=== PATIENT | male | born 1965 | race African-American/Black ===

== ENCOUNTER 2019-12-01 11:35 | Emergency (ER) | payer SELFPAY ==
[2019-12-01 11:36] VITALS: BP 130/79; PULSE 84; RESP 16; TEMP 37.3; O2SAT 100; BMI 24.5
--- NOTE | 2019-12-01 12:51 | US_ITS ---
STUDY: SCROTUM ULTRASOUND REASON FOR EXAM: Male, 54 years old. RT TESTICLE PAIN X 2 DAYS TECHNIQUE: Ultrasound evaluation of the scrotum was performed with color Doppler and static shankar-scale imaging. COMPARISON: None. FINDINGS: RIGHT TESTICLE INTRATESTICULAR: There is a normal size of the right testicle. The right testicle measures 4.4 cm x 2.8 cm x 2.3 cm. There is a homogenous echotexture. There is normal arterial and normal venous vascularity. There is no demonstrated right testicular mass or cyst. EXTRATESTICULAR: The epididymis is normal in size. The epididymis head measures 1.1 cm x 1.4 cm x 0.9 cm. There is normal vascularity of the epididymis. There is no demonstrated epididymal cystic structure. There is a moderate size hydrocele. There is no demonstrated varicocele. There is no demonstrated extratesticular mass or cyst. LEFT TESTICLE INTRATESTICULAR: There is a normal size of the left testicle. The left testicle measures 4.5 cm x 3 cm x 2.2 cm. There is a homogenous echotexture. There is normal arterial and normal venous vascularity. There is no demonstrated left testicular mass or cyst. EXTRATESTICULAR: The epididymis is normal in size. The epididymis head measures 1 cm x 1 cm x 1.3 cm. There is normal vascularity of the epididymis. There is no demonstrated epididymal cystic structure. There is a small hydrocele. There is no demonstrated varicocele. There is no demonstrated extratesticular mass or cyst. US/Testicular with Arterial Flow IMPRESSION: Bilateral hydroceles right greater than left. Electronically Signed: Oni Martinez, at 14:07 EST , Service support ,
[2019-12-01] MEDS: Naproxen 250 MG Tablet 500 MG PO (13:05)
[2019-12-01] MEDS: oxyCODONE 5 MG Tablet 10 MG PO (13:08)
[2019-12-01] MEDS: Ondansetron ODT 4 MG Tablet PO (13:08)
[2019-12-01 13:13] LABS: Mucous, Urine 0 SEEN /hpf (<or=2+)
[2019-12-01 13:24] LABS: Color, Urine Yellow (Yellow); Glucose, Dipstick Normal (Normal); Ketone-Dipstick Negative (Negative); Leukocyte Esterase-Dipstick 100 /ul (Negative); Nitrite-Dipstick Negative (Negative); Occult Blood-Urine 150 /ul (Negative); Protein-Dipstick 30 mg/dl (Negative); Urine Bilirubin Dipstick Negative (Negative); Urine Clarity Clear (Clear); Urine Urobilinogen Normal (Normal)
[2019-12-01 13:41] LABS: Bacteria 1+ /hpf (None Seen); Red Blood Cells-Urine 10-25 SEEN /hpf (0-5); Squamous Epithelial Cells - UA 0-5 SEEN /hpf (0-5); White Blood Cells 10-25 SEEN /hpf (0-5)
--- NOTE | 2019-12-01 14:29 | ED.DCSUM_ITS ---
- ER Visit Summary Date of Service: 12/01/19 Chief Complaint: Right testicle swollen History of Present Illness: The patient is a 54 M with no primary care physician. He reports that his right testicle is been swollen for the past 3 days. Reports is a sharp pain is 10-10 in severity. Is worsened by movement. Is relieved by rest or pushing on his stomach. He is sexually active. He has no concern for the possibility of an STD exposure. He denies any penile discharge. He denies any dysuria or frequency. No fever or chills. No abdominal pain, nausea, vomiting, or diarrhea. Physical Examination: Vitals: Stable. Afebrile. General: Well-nourished and well-developed. Head: Normocephalic atraumatic. Neck: Supple, no lymphadenopathy. No JVD. Nontender. Cardiovascular: Regular rate and rhythm. No murmurs. Respiratory: No respiratory distress. Clear to auscultation bilaterally. Abdominal: Soft, nontender, nondistended, normal bowel sounds. No guarding, rebound, or peritoneal signs. : Normal circumcised male. Right testicle has moderate tenderness palpation. There is mild epididymal tenderness. There are no inguinal hernias. He was examined while standing. Back: Nontender. Extremities: Nontender, no edema. Skin: Normal color, no rash. Neurologic: Alert and oriented ?3. Cranial nerves II through XII are intact. Normal strength and sensation. Psych: Normal affect. Test Results: UA shows 10-25 white blood cells and red blood cells. GC chlamydia was negative. Clinical Impression(s) from Imaging Studies Testicular Ultrasound 12/01/19 12:51 IMPRESSION: Bilateral hydroceles right greater than left. Electronically Signed: Oni Martinez, at 14:07 EST , Service support , Emergency Department Course and Treatment: Patient was treated with [place], naproxen, Zofran, and Cipro p.o. His urine was sent for culture. Treatment Plan: Patient be discharged with the above medications. He is instructed to wear supportive undergarments and ice. Follow-up Dr. Pike in 1 to 2 weeks for another exam. Return to the emergency department for any worsening symptoms. Disposition: To home in improved and stable condition. Impression: 1. UTI. 2. Right testicle pain. This note was generated with [employer] dictation software. It may contain incorrect words, spelling, and punctuation that were not noted in review of the chart prior to signing ED Disposition - Plan for ED Patient: Disposition: Home or Assisted Living Instructions: Urinary Tract Infections in Men Prescriptions: Ciprofloxacin [Cipro] 500 mg PO BID #14 tab Prescription Printed Naproxen [Naprosyn] 500 mg PO BID #14 tab Prescription Printed Hydrocodone Bitart/Apap 5-325 [[place] 5MG-325MG] 1 tab PO Q6H PRN PRN 3 Days #10 tab PRN Reason: Pain Prescription Printed Referrals: Monty Saldana MD [STAFF PHYSICIAN] - 1-2 Weeks
[2019-12-01] MEDS: Ciprofloxacin 500 MG Tablet PO (14:42)
[2019-12-01 14:45] VITALS: BP 134/87; PULSE 87; RESP 18; O2SAT 99
[2019-12-01 15:22] LABS: Chlamydia Trachomatis by PCR Negative (Negative); Neisserai gonorrhoeae by PCR Negative (Negative); Probe Check PASS; Sample Adequacy Control PASS; Specimen Processing Control PASS
== END 2019-12-01 14:46 | disposition home or self-care (01) ==
PROVIDERS: Emergency Provider Emergency Medicine
DX: N39.0 Urinary tract infection, site not specified (principal); N50.811 Right testicular pain; Z72.0 Tobacco use
CPT/HCPCS: 76870; 81001; 87086; 87088; 87186; 87491; 87591; 93976; 99283

== ENCOUNTER → 2025-04-12 | Outpatient (CLI) | payer MEDICAID, SELFPAY ==
[2025-04-12 14:07] LABS: Absolute Lymphocyte Count 1.89 X10^3/uL (0.83-4.51); Absolute Neutrophil Count 2.3 X10^3/uL (2.0-7.7); Basophil# 0.05 X10^3/uL; Eosinophil# 0.12 X10^3/uL; Eosinophils% 2.5 % (0-5); Hemoglobin 13.7 g/dL (13.0-16.5); Lymphocyte # 1.89 X10^3/ul (0.83-4.51); Lymphocyte % 38.7 % (19-41); Mean Corp Hgb Conc 32.6 g/dL (32-36); Mean Corpuscular Hgb 27.3 pg (27.0-32.0); Mean Corpuscular Volume 83.8 fL (80-94); Mean Platelet Vol. 11.4 fl (6.2-12.0); Monocyte# 0.48 X10^3/uL; Monocyte% 9.8 % (0-10); NRBC Flagged by Analyzer 0 % (0-5); Neutrophil # 2.33 X10^3/uL (2.7-7.7); Neutrophil % 47.8 % (47-70); POSITIVE MORPHOLOGY YES; Platelet Count 258 K/mm3 (150-450); RBC Distribution Width CV 13.7 % (11.6-14.6); RBC Distribution Width SD 42.4 fl (35.1-43.9); Red Blood Count 5.01 M/mm3 (4.6-6.2); White Blood Count 4.9 K/mm3 (4.4-11.0)
[2025-04-12 14:08] LABS: Differential Indicated SCAN CRITERIA MET
[2025-04-12 14:32] LABS: Atypical Lymphocyte 1+ %; Differential Comment SCANNED
[2025-04-12 15:06] LABS: ALB/GLOB Ratio 1.5 RATIO (0.9-2.4); AST(SGOT) 21 U/L (<=37); Alanine Aminotransfer ALT/SGPT 13 U/L (<=46); Albumin, Serum 4.2 g/dL (3.5-5.0); Alkaline Phosphatase 115 U/L (40-129); Anion Gap 11 (5-15); BUN 12 mg/dL (4-19); BUN/Creat Ratio 14.3 RATIO (10-20); Carbon Dioxide 23.7 mmol/L (21.0-32.0); Chloride 106 mmol/L (98-108); Cholesterol 156 mg/dL (<=200); Creatinine, Serum 0.81 mg/dL (0.70-1.20); EST Glomerular Filtration Rate 103 (>60); Globulin 2.7 g/dL (2.2-4.2); Glucose 90 mg/dL (70-99); High Density Lipoprotein 57 mg/dL; Low Density Lipoprotein Calc. 92 mg/dL; Protein, Total 6.9 g/dL (5.9-8.4); Sodium Level 140 mmol/L (133-145); Total Bilirubin 0.19 mg/dL (0.00-1.30); Triglycerides 38 mg/dL; Very Low Density Lipoprotein 8 mg/dL (5-40); cholesterol:hdl ratio screen 2.75
--- OUTSIDE RECORDS SUMMARY | 2025-04-12 21:51 | XMS RPT_ITS | CCD ---
Author Organization [facility] Care Team Providers Care Internet Systems Administrator Name Role Phone Unavailable Primary Care Provider UnavailANA MARIA Alvarez Referring Unavailable Care Physician, No Primary Primary Care Provider Unavailable Care Physician, No Primary Referring Provider Un available Roxanna MACEDO, Dr. Lamas Attending Provider Cydney Mcknight Attending Unavailable Care Physician, No Primary Primary Care Unava ilable Care Physician, No Primary Referring Unava ilCydney Wang Referring Unavailable Cydney Mcknight Attending Unavailable Cydney Mcknight Primary Care Unavailable Medications Current Medications Medication Drug Class(es) Dates Sig (Normalized) Sig (Original) metroNIDAZOLE 500 mg oral tablet (3 sources) Nitroimidazole Antimicrobial Start: 02-24-2024 End: 03-02-2024 take 1 tablet by mouth twice daily metroNIDAZOLE (FLAGYL) 500 mg tablet Take 1 tablet by mouth two times a day for 7 days. 14 tablet 0 02/24/2024 03/02/2024 Active Comment on above: Take 1 tablet by edy two times a day for 7 days. 24 hr nicotine 0.583 mg/hr transdermal system (1 source) Cholinergic Nicotinic Agonist Start: 04-11-2025 apply 1 dose transdermal route every twenty-four hours Nicotine 14 mg/24 hr patch 24 hour Active 1 NMA TD Q24H April 11, 2025 12:00am Completed/Discontinued Medications Medication Drug Class(es) Dates Sig (Normalized) Sig (Original) acetaminophen 325 mg / HYDROcodone bitartrate 5 mg oral tablet (1 source) Opioid Agonist Start: 12-01-2019 End: 12-04-2019 Hydrocodone-Acetam inophen 1 TABLET tablet Discontinued 1 {tbl} PO EVERY 6 HOURS NEEDED as needed for Pain 10 3 December 01, 2019 December 03, 2019 1:00am December 04, 2019 1:08am ciprofloxacin 500 mg oral tablet (1 source) Quinolone Antimicrobial Start: 12-01-2019 End: 04-11-2025 take 1 tablet by mouth twice daily Ciprofloxacin Hcl 500 MG tablet Discontinued 500 mg PO TWICE A DAY December 01, 2019 1:00am April 11, 2025 12:59pm naproxen 500 mg oral tablet (1 source) Nonsteroidal Anti-inflammatory Drug Start: 12-01-2019 End: 04-11-2025 take 1 tablet by mouth twice daily Naproxen 500 MG tablet Discontinued 500 mg PO TWICE A DAY December 01, 2019 1:00am April 11, 2025 12:59pm Problems Problem Classification Problem Date Documented Da te Episodic/Chronic Immunizations and screening for infectious disease (1 source) Patient encounter status; Translations: [Encounter for screening for infections with a predominantly sexual mode of transmission] 02-23-2024 Episodic Other ear and sense organ disorders (1 source) Impacted cerumen of bilateral ears; Translations: [Impacted cerumen, bilateral] Episodic Other gastrointestinal disorders (1 source) Stool finding; Translations: [Other specified symptoms and signs involving the digestive system and abdomen] 04-11-2025 Episodic Other gastrointestinal disorders (2 sources) Other specified symptoms and signs involving the digestive system and abdomen; Translations: [Other specified symptoms and signs involving the digestive system and abdomen] Onset: 04-11-2025 Episodic Other male genital disorders (2 sources) Testicular mass; Translations: [Other specified disorders of the male genital organs] 02-23-2024 Episodic Other male genital disorders (1 source) Other specified disorders of the male genital organs; Translations: [Testicular mass] Onset: 02-24-2024 Episodic Unclassified (1 source) R19.8 - Other specified symptoms and signs involving the digestive system and abdomen Results Test Name Value Interpretation Reference Range [facility] Internal Medicine Office Vis iton 04-11-2025 Internal Medicine Office Visit [facility] [place], [place] [address] OFFICE VISIT Date of Service: 04/11/25 MR#: [id number] Acct: [id number] Name: PABLO STANLEY Rep #: [id number] : 1965 Provider: Dr. Cydney gardner MD Age/Sex: 59/M Location: [facility] Status: Signed Intake Vital Signs 04/11/25 13:18 Height 5 ft 10 in Weight: 150 lb BMI 21.5 BP 134/90 H Blood Pressure Location Lt brachial Position Sitting Respiration 16 Pulse 85 Pulse Source Monitor Temp 99.1 F Temp Source Temporal Pulse Oximetry (%) 99 Oxygen Delivery Method room air Intake Visit Reasons: EST NEW PT - PPWK SENT Chief Complaint: Establish care. 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 Has not had routine labs drawn or is up to date on colonoscopies or other routine maintenance. Pt states he is having issues w/ food digesting slow and alternating between constipation and loose stools. When he thinks he is done and should be he gets up and has to go back to the toilet again. He has been written up a few times for it, they requested he see a to look into and get a note. Pt states it has been going on for about a year and is not changing in intensity or frequency. Pt states he goes to the bathroom in the morning before work but he has to use it by the time he gets there. Pt states he occasionally has to strain, and has abdominal cramping when he finishes having a BM. Pt states he has about 2-3 days between BM's and thinks that is what's the issues. He states he does have an excess amount of stool when he can use the restroom. He says that if he stands up after having a BM and sits down he is able to go again. He says the processed foods seem to make the issue worse. Has not tried treating otc. He does c/o loss of appetite. He has irritated his rectum and had blood when he wipes but thinks it was from wiping so much. Has not tried to treat w/ anything otc. Pt denies abdominal pain, inctontience, bloating, nausea, vomiting. No change or odd color/smell or charachteristics. [facility] Medical History (Updated 04/11/25 @ 14:[address] Cydney Mcknight MD) Encounter to establish care Elevated blood pressure reading without diagnosis of hypertension Abnormal bowel movement Preventative health care Social History (Updated 04/11/25 @ 13:07 by Anat Moon MA) adopted: No household members: significant other and children number of children: 6 current occupational status: employed current occupation: [employer] pets and animals: Yes pets and animals: cat(s) and dog(s) sexually active: Yes Smoking Status: Current every day smoker tobacco type: cigarettes Tobacco: How many years used: 25 alcohol intake: never substance use type: marijuana caffeine: No frequency: daily do you feel safe at home: Yes HPI HPI Chief Complaint: Establish care. Concerns with bowel movement Details: PABLO STANLEY, is a 59 M who presents to the office today to establish care. Also has some concerns. He states that over the last 2 to 3 years, he has had some concerns with his bowel movements. Feels that he is unable to empty his bowels consistently. Happens at work and at home. When he thinks he is done, gets up and still has to go. Vacillates between constipation and diarrhea. No blood in his stool and no unintentional weight changes. Has not been seen or had any workup in many years. Blood pressure is elevated today, no known history of hypertension. He states that this may be due to recent stressors. History of tobacco use and has smoked about a pack a day for about 30 years. Over the last 3 months, he states that he cut back to smoking 1 pack over 3 days. He would like to quit smoking and has been making changes on his own. As above, has not sought medical care in many years. Not had colon cancer screening or lung cancer screening. No concerns with breathing reported. ROS Const Constitutional: Positive for change in appetite; No body ache, chills, excessive sweating, fatigue, fever(s), frequent falls, headache(s), snoring, weakness or sleep problems Eyes Eyes: No blurry vision, change in vision, eye pain or Light sensitivity ENT ENT: No abnormal hearing, ear or mastoid pain, tinnitus, nasal congestion, headache(s), neck pain or sore throat Resp Respiratory: No cough, shortness of breath, snoring or wheezing Cardio Cardiology: No chest pain at rest, chest pain with exertion, excessive sweating, shortness of breath, d (more content not included)... Normal [facility] C. trachomatis+N. gonorrhoea e DNA GÓMEZ+probe Ql (Unsp spec)on 02-24-2024 C. trachomatis rRNA GÓMEZ+probe Ql (Unsp spec) Negative Negative for Chlamydia trachomatis by amplificaton [facility] N. gonorrhoeae rRNA GÓMEZ+probe Ql (Unsp spec) Negative Negative for Neisseria gonorrhoeae by amplification [facility] CNP[facility] PABLO STANLEY ([id number]) 1965 M Date Time Provider Department 02/24/24 ANA MARIA RODRIGUEZ [facility] During your visit today, we recorded the following information about you: Ana Maria Rodriguez APRN.CNP 02/24/2024 2:31 PM Signed Please inform patient ultrasound did not reveal any masses. 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 Most the time these are harmless and no treatment is needed. Follow-up with as discussed. Ana Maria Rodriguez APRN.[place] LPN 02/24/2024 3:02 PM Signed Left message for patient to return call. AVA Mills Krystle, RN 02/25/2024 10:54 AM Signed Patient calls and notified of results and providers instructions. Patient verbalizes understanding. Desiree Vasquez RN Allergies As of Date: 02/24/2024 (No Known Allergies) Date Reviewed: 02/23/2024 Reviewed by: Ana Maria Rodriguez APRN.CNP - Fully Assessed Reason for Visit: Results [95] Prescriptions as of 02/25/2024 - metroNIDAZOLE (FLAGYL) 500 mg tablet Take 1 tablet by mouth two times a day for 7 days. Problem List As Of Date: 02/24/2024 (None) Encounter Status:Closed by DESIREE VASQUEZ on 02/25/24 [facility] MALAHARVEYROSALBA Turner ([id number]) 1965 M Date Time Provider Department 02/24/24 NEREYDA MCKEON [facility] During your visit today, we recorded the following information about you: Nereyda Mckeon PA 02/24/2024 7:17 AM Signed Please contact patient and let him know he tested positive for trichomonas. This is an STD. I sent metronidazole into the pharmacy. Please take this twice daily as prescribed. Do not drink alcohol while taking this medication. No sexual intercourse for 7 days after finishing antibiotic. Notify all partners of positive trichomonas result. He was negative for chlamydia and gonorrhea Simona Fofana MA 02/24/2024 7:32 AM Signed Left message for patient to return call. KEESHA Anderson Krystle, RN 02/25/2024 10:53 AM Signed Patient calls and notified of results and providers instructions. Patient verbalizes understanding. Desiree Vasquez RN Allergies As of Date: 02/24/2024 (No Known Allergies) Date Reviewed: 02/23/2024 Reviewed by: Ana Maria Rodriguez APRN.[facility] - Fully Assessed Reason for Visit: Results [95] Order(s):metroNIDAZ OLE (FLAGYL) 500 mg tabletTake 1 tablet by mouth two times a day for 7 days.Disp: 14 tabletRfl: 0 Prescriptions as of 02/25/2024 - metroNIDAZOLE (FLAGYL) 500 mg tablet Take 1 tablet by mouth two times a day for 7 days. Problem List As Of Date: 02/24/2024 (None) Prescriptions ordered this encounter Disp Refills Start End METRONIDAZOLE 500 MG TABLET 14 t* 0 02/24/2024 03/02/2024 Route: ORAL Sig: Take 1 tablet by mouth two times a day for 7 days. Encounter Status:Closed by DESIREE VASQUEZ on 02/25/24 Normal [facility] No Panel Informationon 02-23 [facility] TRICHOMONAS VAGINALIS NAATon 02-24-2024 T. vaginalis DNA GÓMEZ+probe Ql (Unsp spec) Positive Abnormal Negative for Trichomonas vaginalis by amplification [facility] US DOPPLER COMPLETEon 2023 US DOPPLER COMPLETE * * *Final Report* * * DATE OF EXAM: Feb 24 2024 2:01PM WRU [id number] - US DOPPLER COMPLETE / PROCEDURE REASON: Testicular mass * * * * Physician Interpretation * * * * EXAMINATION: SCROTAL ULTRASOUND WITH DOPPLER IMAGING CLINICAL HISTORY: Scrotal mass TECHNIQUE: Sonography of the scrotal contents with color flow and spectral Doppler imaging of the testicular vasculature was performed. Images were obtained and stored in a permanent archive and interpreted remotely. M: US_2 COMPARISON: None RESULT: RIGHT SCROTUM: Right testis: 1.9 x 3.1 x 4.3 cm. Mild tubular ectasia of the rete testes. Otherwise, homogeneous with no calcifications or mass. Normal intratesticular arterial and venous flow with normal spectral waveforms. Epididymis: Normal. Vascular flow on Color Doppler is symmetric to the contralateral side. Hydrocele: small present Varicocele: Small present with the mildly prominent veins of the right pampiniform plexus measuring up to 2.3 mm LEFT SCROTUM: Left testis: 2.1 x 3.3 x 4.5 cm. Tubular ectasia of the rete testes. Otherwise, homogeneous with no calcifications or mass. Normal intratesticular arterial and venous flow with normal spectral waveforms. Epididymis: Normal. Vascular flow on Color Doppler is symmetric to the contralateral side. Hydrocele: small present Varicocele: Present with the dilated veins of the left pampiniform plexus measuring up to 4.3 mm in size. IMPRESSION: 1. No sonographic evidence of testicular mass. 2. 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 3. Bilateral varicoceles, left larger than right. Biosolids Management Technician: TODD Transcribe Date/Time: Feb 24 2024 2:11P Dictated by : MALIK SHARMA MD This examination was interpreted and the report reviewed and electronically signed by: MALIK SHARMA MD on Feb 24 2024 2:15PM EST [id number] Normal [facility] US SCROTUM AND CONTENTSon US SCROTUM AND CONTENTS * * *Final Report* * * DATE OF EXAM: Feb 24 2024 2:01PM U 1063 - US SCROTUM AND CONTENTS / PROCEDURE REASON: Testicular mass * * * * Physician Interpretation * * * * EXAMINATION: SCROTAL ULTRASOUND WITH DOPPLER IMAGING CLINICAL HISTORY: Scrotal mass TECHNIQUE: Sonography of the scrotal contents with color flow and spectral Doppler imaging of the testicular vasculature was performed. Images were obtained and stored in a permanent archive and interpreted remotely. M: USC_2 COMPARISON: None RESULT: RIGHT SCROTUM: Right testis: 1.9 x 3.1 x 4.3 cm. Mild tubular ectasia of the rete testes. Otherwise, homogeneous with no calcifications or mass. Normal intratesticular arterial and venous flow with normal spectral waveforms. Epididymis: Normal. Vascular flow on Color Doppler is symmetric to the contralateral side. Hydrocele: small present Varicocele: Small present with the mildly prominent veins of the right pampiniform plexus measuring up to 2.3 mm LEFT SCROTUM: Left testis: 2.1 x 3.3 x 4.5 cm. Tubular ectasia of the rete testes. Otherwise, homogeneous with no calcifications or mass. Normal intratesticular arterial and venous flow with normal spectral waveforms. Epididymis: Normal. Vascular flow on Color Doppler is symmetric to the contralateral side. Hydrocele: small present Varicocele: Present with the dilated veins of the left pampiniform plexus measuring up to 4.3 mm in size. IMPRESSION: 1. No sonographic evidence of testicular mass. 2. 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 3. Bilateral varicoceles, left larger than right. Biosolids Management Technician: TODD Transcribe Date/Time: Feb 24 2024 2:11P Dictated by : MALIK SHARMA MD This examination was interpreted and the report reviewed and electronically signed by: MALIK SHARMA MD on Feb 24 2024 2:15PM EST [id number] Normal [facility] C. trachomatis+N. gonorrhoea e DNA GÓMEZ+probe Ql (Unsp spec)on 02-23-2024 C. trachomatis rRNA GÓMEZ+probe Ql (Unsp spec) Negative Normal Negative for Chlamydia trachomatis by amplificaton [facility] Comment on above: Order Comment: Speci men Type: URINE SPECIMEN Ordering Facility: [facility] Address: [address] [place] [address] Performed By: #### 3 [id number] #### [facility] CLIA [id number] [address] [place] [address] [place] PO N. gonorrhoeae rRNA GÓMEZ+probe Ql (Unsp spec) Negative Normal Negative for Neisseria gonorrhoeae by amplification [facility] Comment on above: Order Comment: Speci men Type: URINE SPECIMEN Ordering Facility: [facility] Address: [address] [place] [address] Performed By: #### 3 [id number] #### [facility] CLIA [id number] [address] [place] [address] [place] OF PO CNOVon 02-23-2024 CNOV Office Visit (UCTR) ---- PABLO STANLEY ([id number]) 1965 M Date Time Provider Department 02/23/24 11:45 AM ANA MARIA RODRIGUEZ [facility] During your visit today, we recorded the following information about you: Temperature Pulse Respiration Blood pressure 97.1 degrees 86/minute 16/minute 110/68 Weight 68 kg Ana Maria Rodriguez APRN.TELESALES SPECIALIST 02/23/2024 12:21 PM Signed Subjective HPI Nontoxic-appearing male presents urgent care chief complaint STD exposure. Patient states found out that his partner tested positive for trichomonas. He has been sexually active with her. Does not use protection. States overall feels well. Additionally has noticed the lump in his left testicle. This has been present for 2 to 3 months. It is not painful. Denies any scrotal pain testicular swelling penile drainage or rashes. Presents today for evaluation. Denies any fever body aches chills productive cough chest pain shortness of breath pleuritic pain hemoptysis nausea vomiting abdominal pain change in bowel or bladder habits. Past medical history prescription medication use and allergies reviewed. .Patient presents with: STD: trich exposure History reviewed. No pertinent past medical history. History reviewed. No pertinent surgical history. ALLERGIES Patient has no known allergies. MEDICATIONS No prescriptions on file. History reviewed. No pertinent family history. Social History Tobacco Use Smoking status: Every Day Smokeless tobacco: Never BP 110/68 Pulse 86 Temp 36.2 ?C (97.1 ?F) Resp 16 Wt 68 kg (149 lb 14.6 oz) SpO2 99% Review of Systems Constitutional: Negative for chills, fever and malaise/fatigue. HENT: Negative for congestion, ear discharge, ear pain, sinus pain and sore throat. Eyes: Negative for blurred vision, pain, discharge and redness. Respiratory: Negative for cough, hemoptysis, sputum production, shortness of breath, wheezing and stridor. Cardiovascular: Negative for chest pain. Gastrointestinal: Negative for abdominal pain, diarrhea, nausea and vomiting. Genitourinary: Negative for dysuria, flank pain, frequency, hematuria and urgency. Musculoskeletal: Negative for myalgias. Skin: Negative for itching and rash. Neurological: Negative for dizziness and headaches. Objective Physical Exam Constitutional: General: He is not in acute distress. Appearance: He is not diaphoretic. HENT: Head: Normocephalic. Jaw: No trismus, tenderness, swelling or pain on movement. Mouth/Throat: Mouth: Mucous membranes are moist. Pharynx: Oropharynx is clear. Uvula midline. No pharyngeal swelling, oropharyngeal exudate, posterior oropharyngeal erythema or uvula swelling. Eyes: Conjunctiva/sclera: Conjunctivae normal. Pupils: Pupils are equal, round, and reactive to light. Cardiovascular: Rate and Rhythm: Normal rate and regular rhythm. Heart sounds: Normal heart sounds. Pulmonary: Effort: Pulmonary effort is normal. No tachypnea, accessory muscle usage or respiratory distress. Breath sounds: Normal breath sounds. No stridor. No wheezing, rhonchi or rales. Abdominal: General: There is no distension. Palpations: Abdomen is soft. Tenderness: There is no abdominal tenderness. There is no guarding or rebound. Genitourinary: Pubic Area: No rash. Testes: Right: Tenderness or swelling not present. Left: Tenderness or swelling not present. Comments: Possible testicular mass noted highlighted area. Musculoskeletal: Cervical back: Normal range of motion and neck supple. No edema, erythema, rigidity or tenderness. No pain with movement. Normal range of motion. Lymphadenopathy: Cervical: No cervical adenopathy. Skin: General: Skin is warm and dry. Neurological: Mental Status: He is alert and oriented to person, place, and time. ASSESSMENT/PLAN: 1. Screening for STD (sexually transmitted disease) - ICD9: V74.5, ICD10: Z11.3 (primary diagnosis) - GONORRHEA/CHLAMYDIA NAAT - TRICHOMONAS VAGINALIS NAAT 2. Testicular mass - ICD9: 608.89, ICD10: N50.89 - US SCROTUM AND CONTENTS - CONSULT TO UROLOGY - US SCROTUM AND CONTENTS Will test for gonorrhea chlamydia and trichomonas via urine. Treat accordingly to test results. Additionally will obtain a ultrasound due to possible testicular mass. Will refer to urology for follow-up. Patient was educated on supportive therapies. Patient will follow up with primary care provider as needed. Patient was instructed to immediately proceed to emergency room for any new, worsening, or symptoms lasting longer than anticipated. The patient's clinical presentation is otherwise unremarkable at this time. Based on exam and clinical finding, the patient is stable for discharge. Plan of care was discussed with patient. Patient verbalizes understanding and agrees to plan of care. This note was generated using [employer] software. It m (more content not included)... Normal [facility] TRICHOMONAS VAGINALIS NAATon 02-23-2024 T. vaginalis DNA GÓMEZ+probe Ql (Unsp spec) Positive Abnormal Negative for Trichomonas vaginalis by amplification [facility] Comment on above: Order Comment: Speci men Type: URINE SPECIMEN Ordering Facility: [facility] Address: [address] [place] [address] [place] [address] Performed By: #### T RVAMP #### [facility] CLIA [id number] [address] [place], [place] [address] OF PO CNOVon 04-30-2023 CNOV Office Visit ([facility]WSTR) ---- PABLO STANLEY ([id number]) 1965 M Date Time Provider Department 04/30/23 3:45 PM MARYSE COLON [facility] During your visit today, we recorded the following information about you: Temperature Pulse Respiration Blood pressure 97.4 degrees 80/minute 18/minute 120/70 Weight 67.4 kg Maryse Colon APRN.TELESALES SPECIALIST 04/30/2023 4:27 PM Signed Subjective HPI HPI Pablo Johnny Stanley is a 57 year old male who presents today for CC of bilat ears plugged. This started 1 week ago. Has tried nothing for relief. Symptoms are worsened by nothing. Risk factors uses qtips. Denies uri symptoms. .Patient presents with: Ear Problem: Bilateral ears clogged x1 week No past medical history on file. No past surgical history on file. ALLERGIES Patient has no known allergies. MEDICATIONS No prescriptions on file. No family history on file. Social History Tobacco Use Smoking status: Every Day Smokeless tobacco: Never ROS Objective Blood pressure 120/70, pulse 80, temperature 36.3 ?C (97.4 ?F), resp. rate 18, weight 67.4 kg (148 lb 9.6 oz), SpO2 98 %. Physical Exam Constitutional: General: He is not in acute distress. Appearance: He is not toxic-appearing or diaphoretic. HENT: Head: Normocephalic and atraumatic. Right Ear: Hearing and external ear normal. Left Ear: Hearing and external ear normal. Ears: Comments: Initially unable to see bilat tm d/t cerumen impaction. Procedure: Provider/curette/al ligator forceps Nurse/lavage After procedure left canal clear canal clear and left tm normal -right cerumen impaction unable to be cleared d/t pain, very hard crumen. Nose: Nose normal. Mouth/Throat: Lips: [place]. Mouth: Mucous membranes are moist. Pulmonary: Effort: Pulmonary effort is normal. No accessory muscle usage or respiratory distress. Lymphadenopathy: Cervical: No cervical adenopathy. Right cervical: No superficial cervical adenopathy. Left cervical: No superficial cervical adenopathy. Neurological: Mental Status: He is alert and oriented to person, place, and time. ASSESSMENT/PLAN: 1. Bilateral impacted cerumen - ICD9: 380.4, ICD10: H61.23 Successful procedure in left ear, not successful in right Discussed treatment with debrox and f/u for lavage Discussed not using qtips. - AMBULATORY EAR LAVAGE/IRRIGATION Maryse Colon APRN.TELESALES SPECIALIST Blanka Hanson LPN 04/30/2023 4:10 PM Signed Ambulatory Ear Lavage Pre-treatment: Carbamide Peroxide (i.e. Debrox) Treatment: Both ears Equipment and Irrigation solution and Volume used: Single use syringe with single use irrigation tip Water Return flow appearance: Brown Yellow Cloudy Debris Patient tolerated procedure: yes Tympanic membrane assessment: Tympanic membrane assessed by LIP pre and post procedure Allergies As of Date: 04/30/2023 (No Known Allergies) Date Reviewed: 04/30/2023 Reviewed by: Kori Barksdale MA - Fully Assessed Reason for Visit: Ear Problem [38] Cmt: Bilateral ears clogged x1 week Primary Visit Diagnosis:Bilateral impacted cerumen [H61.23] Order(s):AMBULATORY EAR LAVAGE/IRRIGATION [[id number]] Order #: [id number] Problem List As Of Date: 04/30/2023 (None) Visit Notes: >> Blanka Hanson LPN FriApr 30, 2023 4:09 PM Status: Signed Ambulatory Ear Lavage Pre-treatment: Carbamide Peroxide (i.e. Debrox) Treatment: Both ears Equipment and Irrigation solution and Volume used: Single use syringe with single use irrigation tip Water Return flow appearance: Brown Yellow Cloudy Debris Patient tolerated procedure: yes Tympanic membrane assessment: Tympanic membrane assessed by LIP pre and post procedure Encounter Status:Closed by MARYSE COLON on 04/30/23 Normal [facility] Vital Signs Date Time Vital Sign Value Performing Clinician Facility 04-11-2025 13:18-0400 Body height 177.8 cm No Primary Care Physician [facility] 04-11-2025 13:18-0400 Body mass index (BMI) [Ratio] 21.5 kg/m2 No Primary Care Physician [facility] 04-11-2025 13:18-0400 Body temperature 99.1 [degF] No Primary Care Physician [facility] 04-11-2025 13:18-0400 Body weight 68.03 kg No Primary Care Physician [facility] 04-11-2025 13:18-0400 Diastolic blood pressure 90 mm[Hg] No Primary Care Physician [facility] 04-11-2025 13:18-0400 Heart rate 85 /min No Primary Care Physician [facility] 04-11-2025 13:18-0400 Respiratory rate 16 /min No Primary Care Physician [facility] 04-11-2025 13:18-0400 SaO2% (BldA) [Mass fraction] 99 % No Primary Care Physician [facility] 04-11-2025 13:18-0400 Systolic blood pressure 134 mm[Hg] No Primary Care Physician [facility] 02-23-2024 11:41-0400 Body temperature 97.11 [degF] Ana Maria Michael OFFICE BOOKKEEPER.TELESALES SPECIALIST Work Phone: [facility] 02-23-2024 11:41-0400 Body weight 68 kg Ana Maria Rodriguez OFFICE BOOKKEEPER.TELESALES SPECIALIST Work Phone: [facility] 02-23-2024 11:41-0400 Diastolic blood pressure 68 mm[Hg] Ana Maria Rodriguez OFFICE BOOKKEEPER.TELESALES SPECIALIST Work Phone: [facility] 02-23-2024 11:41-0400 Heart rate 86 /min Ana Maria Michael OFFICE BOOKKEEPER.TELESALES SPECIALIST Work Phone: [facility] 02-23-2024 11:41-0400 Respiratory rate 16 /min Ana Maria Rodriguez OFFICE BOOKKEEPER.TELESALES SPECIALIST Work Phone: [facility] 02-23-2024 11:41-0400 SaO2% (BldA) [Mass fraction] 99 % Ana Maria Alvarezledallas OFFICE BOOKKEEPER.TELESALES SPECIALIST Work Phone: [facility] 02-23-2024 11:41-0400 Systolic blood pressure 110 mm[Hg] Ana Maria Rodriguez OFFICE BOOKKEEPER.TELESALES SPECIALIST Work Phone: [facility] 04-30-2023 15:51-0400 Body temperature 97.39 [degF] Maryse Colon OFFICE BOOKKEEPER.TELESALES SPECIALIST Work Phone: [facility] 04-30-2023 15:51-0400 Body weight 67.41 kg Maryse Colon OFFICE BOOKKEEPER.TELESALES SPECIALIST Work Phone: [facility] 04-30-2023 15:51-0400 Diastolic blood pressure 70 mm[Hg] Maryse Colon OFFICE BOOKKEEPER.TELESALES SPECIALIST Work Phone: [facility] 04-30-2023 15:51-0400 Heart rate 80 /min Maryse Colon OFFICE BOOKKEEPER.TELESALES SPECIALIST Work Phone: [facility] 04-30-2023 15:51-0400 Respiratory rate 18 /min Maryse Colon OFFICE BOOKKEEPER.TELESALES SPECIALIST Work Phone: [facility] 04-30-2023 15:51-0400 SaO2% (BldA) [Mass fraction] 98 % Maryse Colon OFFICE BOOKKEEPER.TELESALES SPECIALIST Work Phone: [facility] 04-30-2023 15:51-0400 Systolic blood pressure 120 mm[Hg] Maryse Colon OFFICE BOOKKEEPER.TELESALES SPECIALIST Work Phone: [facility] Encounters Encounter Date Encounter Type Care Provider Facility Start: 05-03-2025 ambulatory Cydney Thibodeaux ty:[facility] Start: 04-11-2025 Encounter for genera l adult medical examination without abnormal findings Cydney Gutierrezarron [facility] Start: 04-11-2025 Patient encounter status No Primary Care Physician [facility] Start: 04-11-2025 End: 04-11-[address] Cydney Mcknight MD -[facility] Work Phone: Start: 04-11-2025 End: 04-11-2025 ambulatory No Primary Care Physician [facility] Work Phone: Start: 02-24-2024 End: 02-24-2024 ambulatory [facility] Facility:[facility] Start: 02-24-2024 Telephone encounter Nereyda HARRISON Work Phone: [facility] Comment on above: Results Start: 02-24-2024 End: 02-24-2024 Subsequent hospital visit by physician [facility] Work Phone: Radiology Comment on above: Testicular mass [N50 .89] Start: 02-23-2024 End: 02-23-2024 ambulatory [facility] Facility:[facility] Start: 02-23-2024 End: 02-23-2024 Office outpatient visit 15 minutes Ana Maria Rodriguez APRN.LOIDA Work Phone: [facility] Comment on above: Screening for STD (s exually transmitted disease) (Primary Dx); Testicular mass Start: 04-30-2023 End: 04-30-2023 ambulatory [facility] Facility:[facility] Start: 04-30-2023 End: 04-30-2023 Patient encounter procedure Maryse Colon APRN.LOIDA Work Phone: [facility] Comment on above: Bilateral impacted c erumen (Primary Dx) Procedures Date Procedure Procedure Detail Performing Clinician Start: 02-24-2024 Dup-scan artl awais abdl/pel/scrot&/rpr orgn com Ana Maria Rodriguez OFFICE BOOKKEEPER.TELESALES SPECIALIST Work Phone: Start: 02-24-2024 Us scrotum & contents J uche Rodriguez OFFICE BOOKKEEPER.TELESALES SPECIALIST Work Phone: Start: 02-23-2024 Iadna chlamydia trachomatis amplified probe tq Ana Maria Rodriguez OFFICE BOOKKEEPER.TELESALES SPECIALIST Work Phone: Plan of Treatment Date Care Activity Detail Author Start: 04-11-[address] [facility] Work Phone: Start: 07-11-2024 Influenza vaccination Influenz a Vaccine (Season Ended) [facility] Start: 11-10-2023 Behavioral Health Screening Behavioral Health Screening [facility] Start: 07-11-2023 Covid-19 Vaccine ( season) Covid-19 Vaccine ( season) [facility] Start: 07-11-2023 Influenza vaccination INFLUENZ A (Season Ended) [facility] Start: 11-10-2022 DEPRESSION ASSESSMENT DEPRESSION ASS ESSMENT [facility] Start: 2022 PROSTATE CANCER SCREENING DISCUSSION PROSTATE CANCER SCREENING DISCUSSION [facility] Start: 2022 Prostate specific antigen measurement Prostate Cancer Screening Discussion [facility] Start: 04-26-2021 COVID-19 VACCINE (3 - Booster for Moderna series) COVID-19 VACCINE (3 - Booster for Moderna series) [facility] Start: 2017 SHINGRIX VACCINE (1 of 2) SHINGRIX VACCINE (1 of 2) [facility] Start: 2012 COLOGUARD (FIT-DNA) COLOGUARD (FIT-D NA) [facility] Start: 2012 Colonoscopy COLONOSCOPY [facility] Start: 2012 COLORECTAL CANCER SCREENING COLORECTAL CANCER SCREENING [facility] Start: [address] COLONOGRAPHY [facility] Start: 2012 DIABETES SCREEN DIABETES SCREEN [facility] Start: 2012 Diabetes Screening Diabetes Screenin g [facility] Start: 2012 FECAL OCCULT BLOOD FECAL OCCULT BLOO D [facility] Start: 2012 Screening for malign ant neoplasm of colon [facility] Start: 2012 SIGMOIDOSCOPY SIGMOIDOSCOPY [facility] Start: 2002 Lipid panel Lipid Screening [facility] Start: 2002 LIPID SCREEN LIPID SCREEN [facility] Start: 1986 Hepatitis B Vaccine (1 of 3 - 19+ 3-dose series) Hepatitis B Vaccine (1 of 3 - 19+ 3-dose series) [facility] Start: 1986 Urine microalbumin profile [facility] Start: 1985 HEPATITIS C SCREENING HEPATITIS C [facility] Start: 1985 Hepatitis C screening Hepatitis C [facility] Start: 1985 HIV SCREENING HIV SCREENING [facility] Start: 1985 HIV screening HIV Screening [facility] Start: 1973 PNEUMOCOCCAL (1 - PCV) PNEUMOCOCCAL (1 - PCV) [facility] Start: 1973 Pneumococcal vaccination Pneumococcal Vaccine (1 of 2 - PCV) [facility] Start: 1967 HEPATITIS B (1 of 3 - 3-dose series) HEPATITIS B (1 of 3 - 3-dose series) [facility] CBC W Auto Different ial panel - Blood [facility] Comprehensive metabo lic 1999 panel - Serum or Plasma [facility] Lipid 1995 panel - Serum or Plasma [facility] Patient referral [facility] Work Phone: Radionuclide gastric emptying study [facility] Removal impacted cerumen irrigation/lvg unilat AMBULATORY EAR LAVAGE/IRRIGATION Procedures Routine Bilateral impacted cerumen Ordered: 04/30/2023 [facility] Work Phone: Comment on above: Ordered: 04/30/2023 End: 03-24-2025 US.doppler Scrotum and testicle US SCROTUM AND CONTENTS Radiology STAT Testicular mass 1 Occurrences starting 02/23/2024 until 03/24/2025 [facility] Work Phone: Comment on above: 1 Occurrences starti ng [facility]/23/2024 [facility] Payers Date Payer Category Payer Self-pay 2025 Unknown [id number] 2023 Unknown [id number] 2023 Unknown [id number] Self-pay SELF PAY INSURANCE [id number] Unknown [id number] Unknown [id number] Social History Date Type Detail Facility Start: 04-30-2023 End: 04-11-2025 Tobacco smoking status MEIS Smokes tobacco daily [facility] Start: 04-30-2023 Tobacco use and exposure Smokeless tobacco non-user [facility] Start: 04-30-2023 End: 02-23-2024 Alcohol intake Not Asked [facility] Start: 1965 Sex Assigned At Not on file [facility] Start: 10-18-2020 End: 02-23-2024 History of Social function [facility] Start: 10-18-2020 End: 02-23-2024 Tobacco use panel [facility] National Score (1-10 0), lower number is lower risk Not on file [facility] Start: 1965 Sex Assigned At Male [facility] Sexual Orientation Heterosexual (finding) [facility] Clinical Notes 04-30-2023 to 02-25-2024 Telephone Encounter - Desiree Vasquez RN - 02/25/2024 10:53 AM EDTTelephone Encounter - Ashley Cm LPN - 02/24/2024 3:02 PM JULIOTUbaldo Thornton RDMS - 02/24/2024 1:45 PM EDT Note Date & Type Note Facility 02-25-2024 Miscellaneous Notes Formattin g of this note might be different from the original. Patient calls and notified of results and providers instructions. Patient verbalizes understanding. Desiree Vasquez RN Left message for patient to return call. Ashley Cm LPN Please inform patient ultrasound did not reveal any masses. 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 Most the time these are harmless and no treatment is needed. Follow-up with as discussed. Ana Maria Rodriguez APRN.TELESALES SPECIALIST documented in this encounter [facility] 02-25-2024 Miscellaneous Notes Formattin g of this note might be different from the original. Patient calls and notified of results and providers instructions. Patient verbalizes understanding. Desiree Vasquez RN Left message for patient to return call. Simona Fofana MA Please contact patient and let him know he tested positive for trichomonas. This is an STD. I sent metronidazole into the pharmacy. Please take this twice daily as prescribed. Do not drink alcohol while taking this medication. No sexual intercourse for 7 days after finishing antibiotic. Notify all partners of positive trichomonas result. He was negative for chlamydia and gonorrhea documented in this encounter [facility] 02-24-2024 Note HNO ID: [id number] Author: UBALDO THORNTON RDMS Service: ? Author Type: Hospital Cleaning Specialist Type: Progress Notes Filed: 02/24/2024 15:18 Note Text: Radiology Service Progress Note PATIENT NAME: Pablo Stanley DATE OF SERVICE: February 24, 2024 TIME: 3:17 PM PATIENT IDENTITY VERIFICATION COMPLETED USING TWO (2) IDENTIFIERS: Name and Date of confirmed by patient verbally. FALL SCREENING: Has the patient had 2 falls in the last year or 1 fall with injury or currently using an Ambulatory Assistive Device (Walker, Cane, Wheelchair, Crutches, etc.)? No PATIENT GENDER DATA: Male PATIENT RELEVANT IMPLANT DATA REVIEWED: Not Applicable PATIENT PRESENTS WITH AN IMPLANTABLE OR ATTACHED ANHYDROUS AMMONIA PRODUCTION SUPERVISOR: No RADIOLOGY DEPARTMENT: Ultrasound PERIPHERAL IV DATA: Not applicable SIGNED BY: Ubaldo Thornton RDMS RVT February 24, 2024 3:17 PM [facility] 02-24-2024 History of Presen t illness Narrative Radiology Service Progress Note PATIENT NAME: Pablo Stanley DATE OF SERVICE: February 24, 2024 TIME: 3:17 PM PATIENT IDENTITY VERIFICATION COMPLETED USING TWO (2) IDENTIFIERS: Name and Date of confirmed by patient verbally. FALL SCREENING: Has the patient had 2 falls in the last year or 1 fall with injury or currently using an Ambulatory Assistive Device (Walker, Cane, Wheelchair, Crutches, etc.)? No PATIENT GENDER DATA: Male PATIENT RELEVANT IMPLANT DATA REVIEWED: Not Applicable PATIENT PRESENTS WITH AN IMPLANTABLE OR ATTACHED ANHYDROUS AMMONIA PRODUCTION SUPERVISOR: No RADIOLOGY DEPARTMENT: Ultrasound PERIPHERAL IV DATA: Not applicable SIGNED BY: Ubaldo Thornton RDMS RVT February 24, 2024 3:17 PM documented in this encounter [facility] 02-23-2024 Note HNO ID: [id number] Author: ANA MARIA RODRIGUEZ APRN.TELESALES SPECIALIST Service: ? Author Type: Nurse Practitioner Type: Progress Notes Filed: 02/23/2024 12:21 Note Text: Subjective HPI Nontoxic-appearing male presents urgent care chief complaint STD exposure. Patient states found out that his partner tested positive for trichomonas. He has been sexually active with her. Does not use protection. States overall feels well. Additionally has noticed the lump in his left testicle. This has been present for 2 to 3 months. It is not painful. Denies any scrotal pain testicular swelling penile drainage or rashes. Presents today for evaluation. Denies any fever body aches chills productive cough chest pain shortness of breath pleuritic pain hemoptysis nausea vomiting abdominal pain change in bowel or bladder habits. Past medical history prescription medication use and allergies reviewed. .Patient presents with: STD: trich exposure History reviewed. No pertinent past medical history. History reviewed. No pertinent surgical history. ALLERGIES Patient has no known allergies. MEDICATIONS No prescriptions on file. History reviewed. No pertinent family history. Social History Tobacco Use Smoking status: Every Day Smokeless tobacco: Never BP 110/68 Pulse 86 Temp 36.2 ?C (97.1 ?F) Resp 16 Wt 68 kg (149 lb 14.6 oz) SpO2 99% Review of Systems Constitutional: Negative for chills, fever and malaise/fatigue. HENT: Negative for congestion, ear discharge, ear pain, sinus pain and sore throat. Eyes: Negative for blurred vision, pain, discharge and redness. Respiratory: Negative for cough, hemoptysis, sputum production, shortness of breath, wheezing and stridor. Cardiovascular: Negative for chest pain. Gastrointestinal: Negative for abdominal pain, diarrhea, nausea and vomiting. Genitourinary: Negative for dysuria, flank pain, frequency, hematuria and urgency. Musculoskeletal: Negative for myalgias. Skin: Negative for itching and rash. Neurological: Negative for dizziness and headaches. Objective Physical Exam Constitutional: General: He is not in acute distress. Appearance: He is not diaphoretic. HENT: Head: Normocephalic. Jaw: No trismus, tenderness, swelling or pain on movement. Mouth/Throat: Mouth: Mucous membranes are moist. Pharynx: Oropharynx is clear. Uvula midline. No pharyngeal swelling, oropharyngeal exudate, posterior oropharyngeal erythema or uvula swelling. Eyes: Conjunctiva/sclera: Conjunctivae normal. Pupils: Pupils are equal, round, and reactive to light. Cardiovascular: Rate and Rhythm: Normal rate and regular rhythm. Heart sounds: Normal heart sounds. Pulmonary: Effort: Pulmonary effort is normal. No tachypnea, accessory muscle usage or respiratory distress. Breath sounds: Normal breath sounds. No stridor. No wheezing, rhonchi or rales. Abdominal: General: There is no distension. Palpations: Abdomen is soft. Tenderness: There is no abdominal tenderness. There is no guarding or rebound. Genitourinary: Pubic Area: No rash. Testes: Right: Tenderness or swelling not present. Left: Tenderness or swelling not present. Comments: Possible testicular mass noted highlighted area. Musculoskeletal: Cervical back: Normal range of motion and neck supple. No edema, erythema, rigidity or tenderness. No pain with movement. Normal range of motion. Lymphadenopathy: Cervical: No cervical adenopathy. Skin: General: Skin is warm and dry. Neurological: Mental Status: He is alert and oriented to person, place, and time. ASSESSMENT/PLAN: 1. Screening for STD (sexually transmitted disease) - ICD9: V74.5, ICD10: Z11.3 (primary diagnosis) - GONORRHEA/CHLAMYDIA NAAT - TRICHOMONAS VAGINALIS NAAT 2. Testicular mass - ICD9: 608.89, ICD10: N50.89 - US SCROTUM AND CONTENTS - CONSULT TO UROLOGY - US SCROTUM AND CONTENTS Will test for gonorrhea chlamydia and trichomonas via urine. Treat accordingly to test results. Additionally will obtain a ultrasound due to possible testicular mass. Will refer to urology for follow-up. Patient was educated on supportive therapies. Patient will follow up with primary care provider as needed. Patient was instructed to immediately proceed to emergency room for any new, worsening, or symptoms lasting longer than anticipated. The patient's clinical presentation is otherwise unremarkable at this time. Based on exam and clinical finding, the patient is stable for discharge. Plan of care was discussed with patient. Patient verbalizes understanding and agrees to plan of care. This note was generated using [employer] software. It may contain errors in wording, punctuation, or spelling. Ana Maria Rodriguez APRN.[facility] 02-23-2024 History of Presen t illness Narrative Images from the original note were not included. Subjective HPI Nontoxic-appearing male presents urgent care chief complaint STD exposure. Patient states found out that his partner tested positive for trichomonas. He has been sexually active with her. Does not use protection. States overall feels well. Additionally has noticed the lump in his left testicle. This has been present for 2 to 3 months. It is not painful. Denies any scrotal pain testicular swelling penile drainage or rashes. Presents today for evaluation. Denies any fever body aches chills productive cough chest pain shortness of breath pleuritic pain hemoptysis nausea vomiting abdominal pain change in bowel or bladder habits. Past medical history prescription medication use and allergies reviewed. .Patient presents with: STD: trich exposure History reviewed. No pertinent past medical history. History reviewed. No pertinent surgical history. ALLERGIES Patient has no known allergies. MEDICATIONS No prescriptions on file. History reviewed. No pertinent family history. Social History Tobacco Use Smoking status: Every Day Smokeless tobacco: Never BP 110/68 Pulse 86 Temp 36.2 C (97.1 F) Resp 16 Wt 68 kg (149 lb 14.6 oz) SpO2 99% Review of Systems Constitutional: Negative for chills, fever and malaise/fatigue. HENT: Negative for congestion, ear discharge, ear pain, sinus pain and sore throat. Eyes: Negative for blurred vision, pain, discharge and redness. Respiratory: Negative for cough, hemoptysis, sputum production, shortness of breath, wheezing and stridor. Cardiovascular: Negative for chest pain. Gastrointestinal: Negative for abdominal pain, diarrhea, nausea and vomiting. Genitourinary: Negative for dysuria, flank pain, frequency, hematuria and urgency. Musculoskeletal: Negative for myalgias. Skin: Negative for itching and rash. Neurological: Negative for dizziness and headaches. Objective Physical Exam Constitutional: General: He is not in acute distress. Appearance: He is not diaphoretic. HENT: Head: Normocephalic. Jaw: No trismus, tenderness, swelling or pain on movement. Mouth/Throat: Mouth: Mucous membranes are moist. Pharynx: Oropharynx is clear. Uvula midline. No pharyngeal swelling, oropharyngeal exudate, posterior oropharyngeal erythema or uvula swelling. Eyes: Conjunctiva/sclera: Conjunctivae normal. Pupils: Pupils are equal, round, and reactive to light. Cardiovascular: Rate and Rhythm: Normal rate and regular rhythm. Heart sounds: Normal heart sounds. Pulmonary: Effort: Pulmonary effort is normal. No tachypnea, accessory muscle usage or respiratory distress. Breath sounds: Normal breath sounds. No stridor. No wheezing, rhonchi or rales. Abdominal: General: There is no distension. Palpations: Abdomen is soft. Tenderness: There is no abdominal tenderness. There is no guarding or rebound. Genitourinary: Pubic Area: No rash. Testes: Right: Tenderness or swelling not present. Left: Tenderness or swelling not present. Comments: Possible testicular mass noted highlighted area. Musculoskeletal: Cervical back: Normal range of motion and neck supple. No edema, erythema, rigidity or tenderness. No pain with movement. Normal range of motion. Lymphadenopathy: Cervical: No cervical adenopathy. Skin: General: Skin is warm and dry. Neurological: Mental Status: He is alert and oriented to person, place, and time. ASSESSMENT/PLAN: 1. Screening for STD (sexually transmitted disease) - ICD9: V74.5, ICD10: Z11.3 (primary diagnosis) - GONORRHEA/CHLAMYDIA NAAT - TRICHOMONAS VAGINALIS NAAT 2. Testicular mass - ICD9: 608.89, ICD10: N50.89 - US SCROTUM AND CONTENTS - CONSULT TO UROLOGY - US SCROTUM AND CONTENTS Will test for gonorrhea chlamydia and trichomonas via urine. Treat accordingly to test results. Additionally will obtain a ultrasound due to possible testicular mass. Will refer to urology for follow-up. Patient was educated on supportive therapies. Patient will follow up with primary care provider as needed. Patient was instructed to immediately proceed to emergency room for any new, worsening, or symptoms lasting longer than anticipated. The patient's clinical presentation is otherwise unremarkable at this time. Based on exam and clinical finding, the patient is stable for discharge. Plan of care was discussed with patient. Patient verbalizes understanding and agrees to plan of care. This note was generated using [employer] software. It may contain errors in wording, punctuation, or spelling. Ana Maria Rodriguez APRN.LOIDA documented in this encounter [facility] 04-30-2023 Note HNO ID: [id number] Author: Maryse Colon APRN.LOIDA Service: ? Author Type: Nurse Practitioner Type: Progress Notes Filed: 04/30/2023 4:27 PM Note Text: Subjective HPI HPI Earnest Johnny Stanley is a 57 year old male who presents today for CC of bilat ears plugged. This started 1 week ago. Has tried nothing for relief. Symptoms are worsened by nothing. Risk factors uses qtips. Denies uri symptoms. .Patient presents with: Ear Problem: Bilateral ears clogged x1 week No past medical history on file. No past surgical history on file. ALLERGIES Patient has no known allergies. MEDICATIONS No prescriptions on file. No family history on file. Social History Tobacco Use Smoking status: Every Day Smokeless tobacco: Never ROS Objective Blood pressure 120/70, pulse 80, temperature 36.3 ?C (97.4 ?F), resp. rate 18, weight 67.4 kg (148 lb 9.6 oz), SpO2 98 %. Physical Exam Constitutional: General: He is not in acute distress. Appearance: He is not toxic-appearing or diaphoretic. HENT: Head: Normocephalic and atraumatic. Right Ear: Hearing and external ear normal. Left Ear: Hearing and external ear normal. Ears: Comments: Initially unable to see bilat tm d/t cerumen impaction. Procedure: Provider/curette/alligator forceps Nurse/lavage After procedure left canal clear canal clear and left tm normal -right cerumen impaction unable to be cleared d/t pain, very hard crumen. Nose: Nose normal. Mouth/Throat: Lips: Creola. Mouth: Mucous membranes are moist. Pulmonary: Effort: Pulmonary effort is normal. No accessory muscle usage or respiratory distress. Lymphadenopathy: Cervical: No cervical adenopathy. Right cervical: No superficial cervical adenopathy. Left cervical: No superficial cervical adenopathy. Neurological: Mental Status: He is alert and oriented to person, place, and time. ASSESSMENT/PLAN: 1. Bilateral impacted cerumen - ICD9: 380.4, ICD10: H61.23 Successful procedure in left ear, not successful in right Discussed treatment with debrox and f/u for lavage Discussed not using qtips. - AMBULATORY EAR LAVAGE/IRRIGATION Maryse Colon APRN.TELESALES SPECIALIST [facility] 04-30-2023 Nurse Note Ambulatory Ear Lavage Pre-treatment: Carbamide Peroxide (i.e. Debrox) Treatment: Both ears Equipment and Irrigation solution and Volume used: Single use syringe with single use irrigation tip Water Return flow appearance: Brown Yellow Cloudy Debris Patient tolerated procedure: yes Tympanic membrane assessment: Tympanic membrane assessed by LIP pre and post procedure documented in this encounter [facility] 04-30-2023 History of Presen t illness Narrative Subjective HPI HPI Earnest Johnny Stanley is a 57 year old male who presents today for CC of bilat ears plugged. This started 1 week ago. Has tried nothing for relief. Symptoms are worsened by nothing. Risk factors uses qtips. Denies uri symptoms. .Patient presents with: Ear Problem: Bilateral ears clogged x1 week No past medical history on file. No past surgical history on file. ALLERGIES Patient has no known allergies. MEDICATIONS No prescriptions on file. No family history on file. Social History Tobacco Use Smoking status: Every Day Smokeless tobacco: Never ROS Objective Blood pressure 120/70, pulse 80, temperature 36.3 C (97.4 F), resp. rate 18, weight 67.4 kg (148 lb 9.6 oz), SpO2 98 %. Physical Exam Constitutional: General: He is not in acute distress. Appearance: He is not toxic-appearing or diaphoretic. HENT: Head: Normocephalic and atraumatic. Right Ear: Hearing and external ear normal. Left Ear: Hearing and external ear normal. Ears: Comments: Initially unable to see bilat tm d/t cerumen impaction. Procedure: Provider/curette/alligator forceps Nurse/lavage After procedure left canal clear canal clear and left tm normal -right cerumen impaction unable to be cleared d/t pain, very hard crumen. Nose: Nose normal. Mouth/Throat: Lips: Creola. Mouth: Mucous membranes are moist. Pulmonary: Effort: Pulmonary effort is normal. No accessory muscle usage or respiratory distress. Lymphadenopathy: Cervical: No cervical adenopathy. Right cervical: No superficial cervical adenopathy. Left cervical: No superficial cervical adenopathy. Neurological: Mental Status: He is alert and oriented to person, place, and time. ASSESSMENT/PLAN: 1. Bilateral impacted cerumen - ICD9: 380.4, ICD10: H61.23 Successful procedure in left ear, not successful in right Discussed treatment with debrox and f/u for lavage Discussed not using qtips. - AMBULATORY EAR LAVAGE/IRRIGATION Maryse Colon APRN.LOIDA documented in this encounter [facility] Evaluation note Diagnosis Bilateral impacted cerumen- Primary Impacted cerumen [facility] Screening for STD (sexually transmitted disease)- Primary Screening examination for venereal disease Testicular mass Other specified disorder of male genital organs [facility] Diagnosis Testicular mass Other specified disorder of male genital organs [facility] Work Phone: Hospital Discharge instructionsAmbulatory Orders* Gastroenterology Location: None Selected [facility] Work Phone: Reason for referral (narrative)* Diagnostic Procedure Only (Urgent) - Authorized Specialty Diagnoses / Procedures Referred By Contac t Referred To Contact US IMAGING Diagnoses Testicular mass Procedures US SCROTUM AND CONTENTS US SCROTUM & CONTENTS Ana Maria Rodriguez APRN.TELESALES SPECIALIST [address] [place] [address] [place] [address] Referral ID Status Reason Start Date Expiration Date Visits Requested Visits Authorized [id number] Authorized Auto-Generat ed Referral 02/23/2024 03/24/2025 1 1 * Consult, Test, Treat (Routine) - Authorized Specialty Diagnoses / Procedures Referred By Contac t Referred To Contact Urology Diagnoses Testicular mass Procedures CONSULT TO UROLOGY OFFICE/OUTPATIENT [facility] 60 MINUTES Ana Maria Rodriguez APRN.TELESALES SPECIALIST [address] [place] [address] Referral ID Status Reason Start Date Expiration Date Visits Requested Visits Authorized [id number] Authorized PCP Requested Referral 02/23/2024 02/22/2025 1 1 [facility] Diagnostic Procedure Only (Urgent) - Closed Specialty Diagnoses / Procedures Referred By Contcailin t Referred To Contact US IMAGING Diagnoses Testicular mass Procedures US SCROTUM AND CONTENTS US SCROTUM & CONTENTS Ana Maria Rodriguez APRN.TELESALES SPECIALIST [address] [place] [address] [place] [address] Referral ID Status Reason Start Date Expiration Date V isits Requested Visits Authorized [id number] Closed Auto-Generate d Referral 02/23/2024 03/24/2025 1 1 [facility] Summary Purpose Family History No Family History Records FoundNo Family History Records Found Advance Directives No Advanced Directives Records FoundNo Advanced Directives Records Found Chief Complaint and Reason for Visit Chief Complaint Admit Date EST NEW PT - PPWK SENT April 11, 2025 12 :56pm Additional Source Comments Source Comments (unrecognize d section and content) In the event this informatio n is protected by the Federal Confidentiality of Alcohol and Drug Abuse Patient Records regulations: The Federal rules restrict any use of the information to criminally investigate or prosecute any alcohol or drug abuse patient.[facility] the event this information is protected by the Federal Confidentiality of Alcohol and Drug Abuse Patient Records regulations: The Federal rules restrict any use of the information to criminally investigate or prosecute any alcohol or drug abuse patient.[facility] the event this information is protected by the Federal Confidentiality of Alcohol and Drug Abuse Patient Records regulations: The Federal rules restrict any use of the information to criminally investigate or prosecute any alcohol or drug abuse patient.[facility] the event this information is protected by the Federal Confidentiality of Alcohol and Drug Abuse Patient Records regulations: The Federal rules restrict any use of the information to criminally investigate or prosecute any alcohol or drug abuse patient.[facility] the event this information is protected by the Federal Confidentiality of Alcohol and Drug Abuse Patient Records regulations: The Federal rules restrict any use of the information to criminally investigate or prosecute any alcohol or drug abuse patient.[facility] Reason for Visit (unrecogniz ed section and content) Reason Comments Ear Problem Bilateral ears clogg ed x1 week Reason Comments STD trich exposure Reason Comments Radiology US Specialty Diagnoses / Procedures Referred By Contac t Referred To Contact US IMAGING Diagnoses Testicular mass Procedures US SCROTUM AND CONTENTS US SCROTUM & CONTENTS Ana Maria Rodriguez, RUY.TELESALES SPECIALIST [address] [place] [address] [place] [id number] Referral ID Status Reason Start Date Expiration Date V isits Requested Visits Authorized [id number] Closed Auto-Generate d Referral 02/23/2024 03/24/2025 1 1 Reason Comments Results (unrecognized sect ion and content) No Status Records FoundNo Status Records Found INFORMATION SOURCE (unrecogn ized section and content) DATE CREATED AUTHOR 02/25/2024 [facility] DATE CREATED AUTHOR AUTHOR'S ORGANIZ ATION 04/12/2025 [facility] Care Teams (unrecognized sec tion and content) Team Status: Active Member Role Status Dates No Primary Care Physician Primary Care Provider Active Team Status: Inactive Member Role Status Dates No Primary Care Physician Primary Care Provider Active Start: April 11, 2025 End: April 11, 2025 No Primary Care Physician Referring Provider Active Start: April 11, 2025 End: April 11, 2025 Dr. Cydney Mcknight MD Attending Provider Active Start: April 11, 2025 End: April 11, 2025 Goals (unrecognized section and content) Goals may be documented in a n alternate section FOR RECORDS PERTAINING TO PATIENTS WHO ARE OR HAVE BEEN ENROLLED IN A CHEMICAL DEPENDENCY/SUBSTANCEABUSE PROGRAM, SOME INFORMATION MAY BE OMITTED. This clinical summary was aggregated from multiple sources. Caution should be exercised in using it in the provision of clinical care. This summary normalizes information from multiple sources, and as a consequence, information in this document may materially change the coding, format and clinical context of patient data. In addition, data may be omitted in some cases. CLINICAL DECISIONS SHOULD BE BASED ON THE PRIMARY CLINICAL RECORDS. [employer] [facility]. provides no warranty or guarantee of the accuracy or completeness of information in this document.
== END | disposition home or self-care (01) ==
LOC: LAB 13:29
PROVIDERS: PCP Internal Medicine; Referring Provider Internal Medicine; Visit Provider Internal Medicine
DX: Z00.00 Encounter for general adult medical examination without abnormal findings (principal)
CPT/HCPCS: 36415; 80053; 80061; 85025

== ENCOUNTER → 2025-05-03 | Outpatient (CLI) | payer MEDICAID, SELFPAY ==
--- NOTE | 2025-05-03 10:31 | NM_ITS ---
PROCEDURE: GASTRIC EMPTYING STUDY 05/03/2025 REASON FOR EXAM: ABNORMAL BOWEL MOVEMENTS COMPARISON: None. TECHNIQUE: The patient ingested a semi-solid meal of oatmeal. There was no vomiting postprandially. Anterior and posterior planar images of the upper abdomen were a total of 60 minutes. Regions of interest were drawn, and a geometric mean was used to calculate a [id number]. Medications taken in the past 24 hours that may affect gastric emptying: None RADIOPHARMACEUTICAL: Technetium 99 M sulfur colloid DOSE 1.1mCi intravenous. FINDINGS: During the time of imaging, gastroesophageal reflux was not identified. Linear fit gastric emptying half-time of 68.5 minutes. Gastric emptying at 23.5 minutes of 33%, 47.5 minutes of 37%, and at 59.5 minutes of 40%. NM/Gastric Emptying Study IMPRESSION: Normal semi solid phase gastric emptying. Reading Location: [place] [address]
== END | disposition home or self-care (01) ==
LOC: NM 10:28
PROVIDERS: PCP Internal Medicine; Referring Provider Internal Medicine; Visit Provider Internal Medicine
DX: R19.8 Other specified symptoms and signs involving the digestive system and abdomen (principal)
CPT/HCPCS: 78264; A9541

== ENCOUNTER → 2025-05-31 | Outpatient (CLI) | payer BC, MEDICAID, SELFPAY ==
--- NOTE | 2025-05-31 13:27 | CT_ITS ---
EXAM: CT Chest, Lung Cancer Screening Without Intravenous Contrast CLINICAL INDICATION: LUNG CANCER SCREENING TECHNIQUE: Axial computed tomography images of the chest without intravenous contrast using low dose (LDCT) lung cancer screening protocol. This CT exam was performed using one or more of the following dose reduction techniques: automated exposure control, adjustment of the mA and/or kV according to patient size, and/or use of iterative reconstruction technique. COMPARISON: No relevant prior studies available. FINDINGS: LUNGS AND PLEURAL SPACES: Lung emphysema/COPD with bilateral apical scarring, some of which has a nodular appearance measuring up to 5 mm. Dependent atelectasis, bilaterally. No mass. No significant effusion. No pneumothorax. HEART: Unremarkable. No cardiomegaly. No significant pericardial effusion. No significant coronary artery calcifications. BONES/JOINTS: Unremarkable. No acute fracture. SOFT TISSUES: Unremarkable. VASCULATURE: Unremarkable. No thoracic aortic aneurysm. LYMPH NODES: Unremarkable. No enlarged lymph nodes. CT/Low Dose CT Lung Screening IMPRESSION: 1. Lung emphysema/COPD with bilateral apical scarring, some of which has a nod ular appearance measuring up to 5 mm. 2. LUNG-RADS 2: Benign. Continue low-dose CT screening of the chest in 12 mon ths is recommended. Reading [facility]
== END | disposition home or self-care (01) ==
LOC: CT 13:26
PROVIDERS: PCP Internal Medicine; Referring Provider Nurse Practitioner Family; Visit Provider Nurse Practitioner Family
DX: Z12.2 Encounter for screening for malignant neoplasm of respiratory organs (principal); Z87.891 Personal history of nicotine dependence
CPT/HCPCS: 71271

== ENCOUNTER → 2025-07-26 | Outpatient (CLI) | payer MEDICAID, SELFPAY ==
--- NOTE | 2025-07-26 15:14 | RAD_ITS ---
PROCEDURE: CERV SPINE 4 OR 5 VIEWS 07/26/2025 REASON FOR EXAM: NECK PAIN TECHNIQUE: Procedure Code: [facility] Modality: DX Procedure: CERV SPINE 4 OR 5 VIEWS COMPARISON: None. FINDINGS: Vertebrae: Preserved. disc spaces: C4-C5, C5-C6 and C6-C7 disc space narrowing with sclerotic endplates and marginal osteophytes. Alignment: Retrolisthesis C5 on C6 by 2 mm. soft tissues: No soft tissue abnormalities. RAD/Cerv Spine 4 or 5 Views IMPRESSION: C4-C5, C5-C6 and C6-C7 disc space narrowing with sclerotic endplates and margin al osteophytes. Retrolisthesis C5 on C6 by 2 mm. Reading Location: [id number]
--- OUTSIDE RECORDS SUMMARY | 2025-07-26 22:56 | XMS RPT_ITS | CCD ---
Author Organization [facility] Care Team Providers Care Watch Caser Name Role Phone Unavailable Primary Care Provider Unavailabl e Care Physician, No Primary Primary Care Provider Unavailable Care Physician, No Primary Referring Provider Un available Roxanna MACEDO, Dr. Lamas Attending Provider Roxanna MACEDO, Dr. Lamas Primary Care Provider Roxanna MACEDO, Dr. Lamas Referring Provider Unavailable Primary Care Provider Unavailabl e PETER FREEDMAN Attending Unavailable Randolph CLAY MAKER-C, Jennifer Attending Provider Randolph CLAY MAKER-C, Jennifer Referring Provider Anish Brink Attending Provider Randolph CLAY MAKER-C, Jennifer Referring Provider Oleghe, Efewongbe Primary Care Unavailable Ekaterina Castillo Attending Unavailable Oleghe, Efewongbe Referring Unavailable Oleghe, Efewongbe Referring Unavailable Oleghe, Efewongbe Primary Care Unavailable Stephanie Callahan Attending Unavailable Oleghe, Efewongbe Primary Care Unavailable Oleghe, Efewongbe Attending Unavailable Care Physician, No Primary Referring Unava ilable Anish Brink Attending Unavailable Oleghe, Efewongbe Primary Care Unavailable Oleghe, Efewongbe Referring Unavailable Oleghe, Efewongbe Primary Care Unavailable Oleghe, Efewongbe Attending Unavailable Oleghe, Efewongbe Referring Unavailable Randolph CLAY MAKER, Jennifer Attending Unavailable Randolph CLAY MAKER, Jennifer Referring Unavailable Oleghe, Efewongbe Primary Care Unavailable Care Physician, No Primary Primary Care Unava ilable Care Physician, No Primary Referring Unava ilable Oleghe, Efewongbe Attending Unavailable Oleniae, Efewongbe Referring Unavailable Oleghe, Efewongbe Primary Care Unavailable Oleghe, Efewongbe Attending Unavailable Oleghe, Efewongbe Referring Unavailable Oleghe, Efewongbe Primary Care Unavailable Oleghe, Efewongbe Attending Unavailable Randolph CLAY MAKER, Jennifer Attending Unavailable Randolph CLAY MAKER, Jennifer Referring Unavailable Oleniae, Efewongbe Primary Care Unavailable Medications Current Medications Medication Drug Class(es) Dates Sig (Normalized) Sig (Original) cyclobenzaprine hydrochloride 5 mg oral tablet (2 sources) Muscle Relaxant Start: 06-24-2025 take 1 tablet by mouth three times daily Cyclobenzaprine 5 mg tablet Active 5 mg PO THREE TIMES A DAY 30 June 24, 2025 12:00am muscle spasm metroNIDAZOLE 500 mg oral tablet (4 sources) Nitroimidazole Antimicrobial Start: 04-25-2025 End: 04-25-2025 take 4 tablets by mouth once metroNIDAZOLE (FLAGYL) 500 mg tablet Indications: Exposure to trichomonas Take 4 tablets by mouth one time only for 1 dose. 4 tablet 04/25/2025 04/25/2025 Active Start: 02-24-2024 End: 03-02-2024 take 1 tablet by mouth twice daily metroNIDAZOLE (FLAGYL) 500 mg tablet Take 1 tablet by mouth two times a day for 7 days. 14 tablet 0 02/24/2024 03/02/2024 Active Comment on above: Take 1 tablet by edy two times a day for 7 days. nortriptyline 10 mg oral capsule (4 sources) Tricyclic Antidepressant Start: 06-15-20 End: 07-18-20 take 1 capsule by mouth at bedtime Nortriptyline 10 mg capsule Active 10 mg PO AT BEDTIME 90 1 July 18, 2025 1:29pm Completed/Discontinued Medications Medication Drug Class(es) Dates Sig (Normalized) Sig (Original) acetaminophen 325 mg / HYDROcodone bitartrate 5 mg oral tablet (8 sources) Opioid Agonist Start: 0 End: 0 Hydrocodone-Acetamino phen 1 TABLET tablet Discontinued 1 {tbl} PO EVERY 6 HOURS NEEDED as needed for Pain 10 3 0 December 01, 2019 December 03, 2019 1:00am December 04, 2019 1:08am Testicular discomfort Testicular pain, unspecified ciprofloxacin 500 mg oral tablet (8 sources) Quinolone Antimicrobial Start: 0 End: 5 take 1 tablet by mouth twice daily Ciprofloxacin Hcl 500 MG tablet Discontinued 500 mg PO TWICE A DAY 14 December 01, 2019 1:00am April 11, 2025 12:59pm meloxicam 15 mg oral tablet (2 sources) Nonsteroidal Anti-inflammatory Drug Start: 5 End: 5 take 1 tablet by mouth once daily Meloxicam 15 mg tablet Discontinued 15 mg PO daily 30 0 June 24, 2025 12:00am July 18, 2025 1:09pm to be started AFTER the medrol pack! methylPREDNISolone 4 mg oral tablet (2 sources) Corticosteroid Start: 5 End: 5 take 1 tablet by mouth once Methylprednisolone (Medrol ([place])) 4 mg tablets,dose pack Discontinued 0 PO per package directions 21 June 24, 2025 12:00am July 18, 2025 1:09pm PO PER PKG DIR for 6 days naproxen 500 mg oral tablet (8 sources) Nonsteroidal Anti-inflammatory Drug Start: 0 End: 5 take 1 tablet by mouth twice daily Naproxen 500 MG tablet Discontinued 500 mg PO TWICE A DAY December 01, 2019 1:00am April 11, 2025 12:59pm 24 hr nicotine 0.583 mg/hr transdermal system (8 sources) Cholinergic Nicotinic Agonist Start: 5 End: 5 apply 1 dose transdermal route every twenty-four hours Nicotine 14 mg/24 hr patch 24 hour Discontinued 1 NMA TD Q24H 28 3 April 11, 2025 12:00am July 18, 2025 1:09pm Problems Problem Classification Problem Date Documented Da te Episodic/Chronic Administrative/social admission (14 sources) First encounter by subject; Translations: [Persons encountering health services in other specified circumstances] 04-11-2025 Episodic Anxiety disorders (6 sources) Anxiety disorder; Translations: [Anxiety disorder, unspecified] Onset: 07-18-2025 06-15-2025 Chronic Immunizations and screening for infectious disease (13 sources) Patient encounter status; Translations: [Encounter for screening for infections with a predominantly sexual mode of transmission] Onset: 04-25-2025 02-23-2024 Episodic Other circulatory disease (14 sources) Elevated blood-pressure reading without diagnosis of hypertension; Translations: [Elevated blood-pressure reading, without diagnosis of hypertension] 04-11-2025 Episodic Other connective tissue disease (4 sources) Muscle spasm of cervical muscle of neck; Translations: [Other muscle spasm] 06-24-2025 Episodic Other disorders of stomach and duodenum (5 sources) Disorder of function of stomach; Translations: [Disease of stomach and duodenum, unspecified] 06-15-2025 Episodic Other disorders of stomach and duodenum (1 source) Disease of stomach and duodenum, unspecified; Translations: [Disease of stomach and duodenum, unspecified] Onset: 07-18-2025 Episodic Other ear and sense organ disorders (1 source) Impacted cerumen of bilateral ears; Translations: [Impacted cerumen, bilateral] Episodic Other gastrointestinal disorders (17 sources) Stool finding; Translations: [Other specified symptoms and signs involving the digestive system and abdomen] 04-11-2025 Episodic Other gastrointestinal disorders (1 source) Other specified symptoms and signs involving the digestive system and abdomen; Translations: [Other specified symptoms and signs involving the digestive system and abdomen] Onset: 05-09-2025 Episodic Other male genital disorders (2 sources) Testicular mass; Translations: [Other specified disorders of the male genital organs] 02-23-2024 Episodic Other screening for suspected conditions (not mental disorders or infectious disease) (1 source) Encounter for screening for malignant neoplasm of respiratory organs; Translations: [Encounter for screening for malignant neoplasm of respiratory organs] Onset: 07-07-2025 Episodic Spondylosis; intervertebral disc disorders; other back problems (8 sources) Neck pain; Translations: [Cervicalgia] Onset: 07-18-2025 06-24-2025 Episodic Substance-related disorders (11 sources) Tobacco dependence, continuous; Translations: [Nicotine dependence, unspecified, with unspecified nicotine-induced disorders] Onset: 07-07-2025 05-31-2025 Chronic Unclassified (8 sources) R19.8 - Other specified symptoms and signs involving the digestive system and abdomen Unclassified (6 sources) Abnormal bowel movement Results Test Name Value Interpretation Reference Range Facil [facility] Internal Medicine Office Vis coleen 07-18-2025 Internal Medicine Office Visit [facility] [address] [place] [address] OFFICE VISIT Date of Service: 07/18/25 MR#: [id number] Acct: [id number] Name: PABLO STANLEY Jr. Rep #: [id number] : 1965 Provider: Dr. Cydney gardner MD Age/Sex: 59/M Location: [facility] Status: Signed Intake Vital Signs 04/11/25 13:18 06/24/25 07:36 07/18/25 13:10 Height 5 ft 10 in 5 ft 10 in 5 ft 10 in Weight: 154 lb BMI 22.1 BP 116/74 Blood Pressure Location Lt brachial Position Sitting Respiration 16 Pulse 74 Pulse Source Monitor Temp 98.9 F Temp Source Temporal Pulse Oximetry (%) 99 Oxygen Delivery Method room air Intake Visit Reasons: 3 M FU Chief Complaint: FU Director Of Land Required: No Is patient in pain?: Yes (L shoulder/neck) Pain scale (1-10): 8 Allergies No Known Allergies Allergy (Verified 07/18/25 13:04) Medications ???Medication ???Instructions ???Recorded ???Confirmed ???Type cyclobenzaprine 5 mg tablet 5 mg PO TID muscle spasm #30 tabs 06/24/25 07/18/25 Rx nortriptyline 10 mg capsule 10 mg PO QHS #90 caps 07/18/2507/04 Rx PFSH Medical History Anxiety disorder Functional gastric disorder Tobacco use disorder, continuous Encounter for screening for malignant neoplasm of lung Encounter to establish care Elevated blood pressure reading without diagnosis of hypertension Abnormal bowel movement Preventative health care Social History adopted: No household members: significant other and children number of children: 6 current occupational status: employed current occupation: [employer] pets and animals: Yes pets and animals: cat(s) and dog(s) sexually active: Yes Smoking Status: Current every day smoker (1/2-1 ppd ) tobacco type: cigarettes Tobacco: How many years used: 25 alcohol intake: never substance use type: marijuana caffeine: No frequency: daily do you feel safe at home: Yes HPI HPI Chief Complaint: FU Details: PABLO STANLEY, is a 59-year-old male presenting for follow-up. The patient reports improvement in bowel habits after starting nortriptyline, which was taken as prescribed. He was started on nortriptyline due to concern for possible functional gastric disorder. He states that he has had less time in the bathroom since starting it. No concerning side effects. The patient also reports cervical and shoulder pain that has been persistent, particularly affecting sleep quality. The pain is localized at the back of the neck and shoulders, bilateral in nature. Despite using a muscle relaxant as prescribed, the patient notes no significant relief, especially when the pain intensity increases. Had an x-ray ordered at his last visit which he is yet to get done. He was also referred to spine Ortho, has an appointment on the . Other chronic conditions are stable. Attestation: Documentation on this patient encounter was supported using ambient scribe technology/ voice AI technology. The patient consented to recording for the purpose of documenting the encounter. Provider reviewed content of the generated note prior to signature. ROS Const Constitutional: No body ache, chills, excessive sweating, fatigue, fever(s), frequent falls, headache(s), snoring, weakness, sleep problems or change in appetite Eyes Eyes: No blurry vision, change in vision, eye pain or Light sensitivity ENT ENT: No abnormal hearing, ear or mastoid pain, tinnitus, nasal congestion, headache(s), neck pain or sore throat Resp Respiratory: No cough, shortness of breath, snoring or wheezing Cardio Cardiology: No chest pain at rest, chest pain with exertion, excessive sweating, shortness of breath, dyspnea on exertion, lightheadedness, orthopnea or palpitations Gastro GI: No abdominal pain, change in bowel habits, constipation, cramping, diarrhea, nausea/dyspepsia or vomiting Genitourinary Male: No burning urination, painful urination, urinary incontinence or urinary frequency Musc Musculoskeletal: No abnormal gait, joint pain, back pain, limited range of motion, neck pain or numbness Skin Skin: No dry skin, redness, lesions, itchy eyes, rash or wounds Neuro Neurology: No abnormal gait, abnormal hearing, weakness, frequent falls, headache(s), memory loss or numbness Psych Psychiatric: No anxiety, No change in appetite, No depression, No memory loss and No Thoughts of harming yourself/Others Endo Endocrine: No cold intolerance, excessive sweating, fatigue, flushing, heat intolerance, increased thirst/drinking or increased hunger Aller/Imm Allergy/Immunologic : No itchy eyes, seasonal allergy symptoms, hives or wheezing Abram/Lymp Hematologic/Lymphat ic: No easy (more content not included)... Normal [facility] Internal Medicine Office Vis coleen 06-24-2025 Internal Medicine Office Visit [facility] [address] [place] [address] OFFICE VISIT Date of Service: 06/24/25 MR#: [id number] Acct: [id number] Name: PABLO STANLEY JrThor Rep #: [id number] : 1965 Provider: HUNTER Brown Age/Sex: 59/M Location: [facility] Status: Signed Intake Vital Signs 06/15/25 13:06 06/24/25 07:36 Height 5 ft 10 in 5 ft 10 in Weight: 150 lb 151 lb BMI 21.5 21.7 BP 128/68 H 108/60 Blood Pressure Location Lt brachial Rt brachial Position Sitting Sitting Respiration 18 16 Pulse 94 Pulse Source Monitor Temp 97.8 F 97.7 F L Temp Source Temporal Temporal Pulse Oximetry (%) 99 Oxygen Delivery Method room air Intake Visit Reasons: 'PINCHED NERVE' IN SHOULDERS Chief Complaint: shoulder pain Director Of Land Required: No Accompanied by: Self Is patient in pain?: Yes (between 8-9 pain radiates down arm tingling and numbness radiates to hand) Pain scale (1-10): 8 Allergies No Known Allergies Allergy (Verified 06/24/25 07:30) Medications ???Medication ???Instructions ???Recorded ???Confirmed ???Type nicotine 14 mg/24 hr daily 1 patch transdermal Q24H #28 ea 06/24/25 Rx transdermal patch nortriptyline 10 mg capsule 10 mg PO QHS #30 caps 06/15/25 Rx cyclobenzaprine 5 mg tablet 5 mg PO TID muscle spasm #30 tabs 06/24/25 06/24/25 Rx meloxicam 15 mg tablet 15 mg PO QDAY #30 tabs 06/24/25 Rx methylprednisolone 4 mg tablets in See Rx Instructions PO PER PKG D IR 06/24/25 06/24/25 Rx a dose pack (Medrol ([place])) #21 tabs Nurse's Note: pain in heidi shoulders pain radiates down arm into hand tingles and numbness started in right shoulder moved to left as well getting worse over the past 2 months [facility] Medical History Anxiety disorder Functional gastric disorder Tobacco use disorder, continuous Encounter for screening for malignant neoplasm of lung Encounter to establish care Elevated blood pressure reading without diagnosis of hypertension Abnormal bowel movement Preventative health care Social History adopted: No household members: significant other and children number of children: 6 current occupational status: employed current occupation: [employer] pets and animals: Yes pets and animals: cat(s) and dog(s) sexually active: Yes Smoking Status: Current every day smoker (1/2-1 ppd ) tobacco type: cigarettes Tobacco: How many years used: 25 alcohol intake: never substance use type: marijuana caffeine: No frequency: daily do you feel safe at home: Yes HPI HPI Chief Complaint: shoulder pain Details: PABLO STANLEY, is a 59 M who presents to the office today for shoulder pains x 2-3 months now. He states that the pains started on the right side and now involves both shoulders. He states that the pains sort of shoot from the shoulder into the neck. He states that he does get some intermittent numbness and tingling in the thumb of both upper extremities. HE states that while he is working that he doesn't feel it that bad or at least he is busy enough to not notice but when he stops or is at resting then he really notices this more. He states that this bothers him at night. 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 He is currently a smoker trying to cut down. HE was 1/2ppd but has been using patches to reduce this. ROS Const Constitutional: No body ache, excessive sweating, fatigue, fever(s), frequent falls, headache(s), snoring, weakness, weight change, sleep problems or change in appetite Eyes Eyes: No blurry vision, change in vision, eye pain or Light sensitivity ENT ENT: No abnormal hearing, ear or mastoid pain, tinnitus, nasal congestion, headache(s), neck pain or sore throat Resp Respiratory: No cough, shortness of breath, snoring or wheezing Cardio Cardiology: No chest pain at rest, chest pain with exertion, excessive sweating, shortness of breath, dyspnea on exertion, lightheadedness, orthopnea or palpitations Gastro GI: No abdominal pain, change in bowel habits, constipation, cramping, diarrhea, nausea/dyspepsia or vomiting Genitourinary Male: No burning urination, painful urination, urinary incontinence, urinary frequency or blood in urine Musc Musculoskeletal: Positive for joint pain, limited range of motion, radiating pain into limb and other (heidi shoulder pain started right side now in left also); No abnormal gait, back pain, neck pain, numbness, stiffness, tingling or Arthritis Skin Skin: No dry skin, redness, lesions, itchy eyes, rash or wounds Neuro Neurology: No abnormal gait, abnormal hearing, (more content not included)... Normal [facility] Internal Medicine Office Vis [facility] 06-15-2025 Internal Medicine Office Visit [facility] [address] [place] [address] OFFICE VISIT Date of Service: 06/15/25 MR#: [id number] Acct: [id number] Name: PABLO STANLEY Johnny Spangler Rep #: [id number] : 1965 Provider: Dr. Cydney gardner MD Age/Sex: 59/M Location: [facility] Status: Signed Intake Vital Signs 05/31/25 12:52 06/15/25 13:06 Height 5 ft 10 in 5 ft 10 in Weight: 151 lb 3 oz 150 lb BMI 21.7 21.5 BP 127/79 H 128/68 H Blood Pressure Location Lt brachial Lt brachial Position Sitting Sitting Respiration 16 18 Pulse 79 94 Pulse Source Monitor Monitor Temp 98.7 F 97.8 F Temp Source Temporal Temporal Pulse Oximetry (%) 99 99 Oxygen Delivery Method room air room air Intake Visit Reasons: BATHROOM ISSUES Chief Complaint: BATHROOM ISSUES Is patient in pain?: No Allergies No Known Allergies Allergy (Verified 06/15/25 13:06) Medications ???Medication ???Instructions ???Recorded ???Confirmed ???Type nicotine 14 mg/24 hr daily 1 patch transdermal Q24H #28 ea 06/15/25 Rx transdermal patch nortriptyline 10 mg capsule 10 mg PO QHS #30 caps 06/15/2505/04 Rx Nurse's Note: pt states that he is having issues with his bowels, states that he is having soft stools and bowel urgency, states that he has been having issues with being written up at work for taking too long in the restroom [facility] Medical History (Updated 06/15/25 @ 13:[address] Cydney Mcknight MD) Anxiety disorder Functional gastric disorder Tobacco use disorder, continuous Encounter for screening for malignant neoplasm of lung Encounter to establish care Elevated blood pressure reading without diagnosis of hypertension Abnormal bowel movement Preventative health care Social History adopted: No household members: significant other and children number of children: 6 current occupational status: employed current occupation: [employer] pets and animals: Yes pets and animals: cat(s) and dog(s) sexually active: Yes Smoking Status: Current every day smoker (1/2-1 ppd ) tobacco type: cigarettes Tobacco: How many years used: 25 alcohol intake: never substance use type: marijuana caffeine: No frequency: daily do you feel safe at home: Yes HPI HPI Chief Complaint: BATHROOM ISSUES Details: PABLO STANLEY, is a 59-year-old male presenting with anxiety and gastrointestinal symptoms. He reports significant stress and anxiety due to workplace-related issues, primarily revolving around feeling monitored and unfairly targeted at work, which began to escalate after about a year of employment. This anxiety is compounded by recent threats of job termination and an upcoming hearing related to work performance perceived to be tied to his bathroom breaks at work. The patient's functional gastrointestinal symptoms are characterized by urgent needs to use the bathroom which sometimes results in prolonged bathroom visits. He mentions that these symptoms cause him distress, particularly when he perceives criticism over their duration. This has been an ongoing issue, although specifics on exact duration weren't provided. He reports attempting to manage his symptoms by avoiding eating, which he acknowledges is not beneficial. He notes past referrals to a ctc operator, mentioning missed appointments due to schedule conflicts and stress from work obligations. An X-ray study of his abdomen was previously conducted but no follow-up procedures like endoscopy were completed yet. Associated symptoms include sleep disturbances attributed to job stress, though he reported sleeping well overall. He denies any history of depression, bipolar disorder, or other psychiatric conditions. He has no specific history of anxiety disorders but acknowledges significant emotional stress related to his work situation. Attestation: Documentation on this patient encounter was supported using ambient scribe technology/ voice AI technology. The patient consented to recording for the purpose of documenting the encounter. Provider reviewed content of the generated note prior to signature. ROS Const Constitutional: No body ache, chills, excessive sweating, fatigue, fever(s), frequent falls, headache(s), snoring, weight change, sleep problems, abnormal sleep pattern or change in appetite Eyes Eyes: No blurry vision, change in vision, vision loss, dry eyes, eye pain or Light sensitivity ENT ENT: No abnormal hearing, ear or mastoid pain, tinnitus, nasal congestion, headache(s), neck pain or sore throat Resp Respiratory: No cough, excessive phlegm production, hemoptysis, shortness of breath, snoring or wheezing Cardio Cardiology: No chest pain at rest, chest pain with exertion, excessive sweating, shortness of br (more content not included)... Normal [facility] Low Dose CT Lung Screeningon 05-31-[address] Lung Screening [facility] [address] [place] [id number] Lung Screening MR#: [id number] Acct: [id number] Name: PABLO STANLEY JrThor Rep #: [id number] : 1965 M 59 From: Yehuda Black MD PCP: Dr. Cydney Mcknight MD Status: REG CLI Study: Low Dose CT Lung Screening Date of Exam: 05/31 Exam# [id number] Ordering Dr: Jennifer Dickson CLAY MAKER CLAY MAKER -C EXAM: CT Chest, Lung Cancer Screening Without Intravenous Contrast CLINICAL INDICATION: LUNG CANCER SCREENING TECHNIQUE: Axial computed tomography images of the chest without intravenous contrast using low dose (LDCT) lung cancer screening protocol. This CT exam was performed using one or more of the following dose reduction techniques: automated exposure control, adjustment of the mA and/or kV according to patient size, and/or use of iterative reconstruction technique. COMPARISON: No relevant prior studies available. FINDINGS: LUNGS AND PLEURAL SPACES: Lung emphysema/COPD with bilateral apical scarring, some of which has a nodular appearance measuring up to 5 mm. Dependent atelectasis, bilaterally. No mass. No significant effusion. No pneumothorax. HEART: Unremarkable. No cardiomegaly. No significant pericardial effusion. No significant coronary artery calcifications. BONES/JOINTS: Unremarkable. No acute fracture. SOFT TISSUES: Unremarkable. VASCULATURE: Unremarkable. No thoracic aortic aneurysm. LYMPH NODES: Unremarkable. No enlarged lymph nodes. CT/Low Dose CT Lung Screening IMPRESSION: 1. Lung emphysema/COPD with bilateral apical scarring, some of which has a nodular appearance measuring up to 5 mm. 2. LUNG-RADS 2: Benign. Continue low-dose CT screening of the chest in 12 months is recommended. Reading Location: [facility] CC: CLARISA Dickson; Dr. Cydney Mcknight MD Clothing Manager: Signed Normal [facility] [facility] On[facility] Visit Reporton 05-11 Oncology Visit Report [facility] [address] [place] [id number] OFFICE VISIT Date of Service: 05/31/25 1242 MR#: [id number] Acct: [id number] Name: PABLO STANLEY Rep #: [id number] : 1965 From: Jennifer Kwok Age/Sex: 59/M [place] [facility] [place]: Signed HPI HPI Reviewed eligibility criteria: 59 year old M with a 36 pack year smoking history (1 ppd x 36 years) . Smoking Status: Current every day smoker (1/2-1 ppd ) Decision Making Engaged in shared decision making visit utilizing a visual aid. Discussed the risks and benefits of lung cancer screening including the total radiation exposure, false positive rate, over diagnosis and potential need for follow-up diagnostic testing all associated with low-dose chest CT. ROS Const Denies anorexia, Denies fatigue, Denies headache(s), Denies poor appetite and Denies weight loss ENT Denies headache(s) Card Denies chest pain, Reports dyspnea on exertion and Denies palpitations Resp Reports cough (non productive ), Reports dyspnea on exertion, Denies hemoptysis and Denies wheezing GI Reports system reviewed and no additional complaints, except as documented Reports system reviewed and no additional complaints, except as documented Musc Reports system reviewed and no additional complaints, except as documented Skin/Breast Reports system reviewed and no additional complaints, except as documented Neuro Yes system reviewed and no additional complaints, except as documented and No headache(s) Psych Reports system reviewed and no additional complaints, except as documented Endo Reports system reviewed and no additional complaints, except as documented, Denies fatigue and Denies palpitations Abram/Lymph Reports system reviewed and no additional complaints, except as documented Aller/Immun Denies wheezing Exam Const General: well developed Orientation: alert and oriented x3 HENMT Head: normocephalic and atraumatic Neck Neck: trachea midline, supple and no lymphadenopathy noted Resp Effort Inspection: normal respiratory effort and symmetric chest movement Auscultation: Bilateral: Clear to Auscultation Cardio Rate: regular rate Rhythm: regular rhythm Heart Sounds: S1 normal and S2 normal Psych Affect: normal affect Speech and Movement: speech and movement normal Results Results May 31, [address] Lung Screening COMPARISON: No relevant prior studies available. FINDINGS: LUNGS AND PLEURAL SPACES: Lung emphysema/COPD with bilateral apical scarring, some of which has a nodular appearance measuring up to 5 mm. Dependent atelectasis, bilaterally. No mass. No significant effusion. No pneumothorax. HEART: Unremarkable. No cardiomegaly. No significant pericardial effusion. No significant coronary artery calcifications. BONES/JOINTS: Unremarkable. No acute fracture. SOFT TISSUES: Unremarkable. VASCULATURE: Unremarkable. No thoracic aortic aneurysm. LYMPH NODES: Unremarkable. No enlarged lymph nodes. IMPRESSION: 1. Lung emphysema/COPD with bilateral apical scarring, some of which has a nodular appearance measuring up to 5 mm. 2. LUNG-RADS 2: Benign. Continue low-dose CT screening of the chest in 12 months is recommended. Intake Vital Signs 04/11/25 13:18 05/31/25 12:52 Height 5 ft 10 in 5 ft 10 in Weight: 151 lb 3 oz BMI 21.7 BP 127/79 H Blood Pressure Location Lt brachial Position Sitting Respiration 16 Pulse 79 Pulse Source Monitor Temp 98.7 F Temp Source Temporal Pulse Oximetry (%) 99 Oxygen Delivery Method room air Intake Visit Reasons: Lung cancer screening Is patient in pain?: No Allergies No Known Allergies Allergy (Verified 05/31/25 12:42) Medications ???Medication ???Instructions ???Recorded ???Confirmed ???Type nicotine 14 mg/24 hr daily 1 patch transdermal Q24H #28 ea 05/31/25 Rx transdermal patch PFSH Medical History (Updated 05/31/25 @ 13:05 by Jennifer Dickson NP, [employer]LAY [employer]) Tobacco use disorder, continuous Encounter for screening for malignant neoplasm of lung Encounter to establish care Elevated blood pressure reading without diagnosis of hypertension Abnormal bowel movement Preventative health care Social History adopted: No household members: significant other and children number of children: 6 current occupational status: employed current occupation: [employer] pets and animals: Yes pets and animals: cat(s) and dog(s) sexually active: Yes Smoking Status: Current every day smoker (1/2-1 ppd ) tobacco type: cigarettes Tobacco: How many years used: 25 alcohol intake: never substance use type: marijuana caffeine: No frequency: daily do you feel safe at home: Yes Assessment and Gloria (more content not included)... Normal [facility] Gastric Emptying Studyon Gastric Emptying Study [facility] Services [address] [place] [address] [id number] Gastric Emptying Study MR#: [id number] Acct: [id number] Name: PABLO STANLEY JrThor Rep #: [id number] : 1965 M 59 From: Alexsander Baptiste PCP: Dr. Cydney Mcknight MD Status: REG CLI Study: Gastric Emptying Study Date of Exam: 05/03/25 Exam# [id number] Ordering Dr: Cydney Mcknight MD PROCEDURE: GASTRIC EMPTYING STUDY 05/03/2025 REASON FOR EXAM: ABNORMAL BOWEL MOVEMENTS COMPARISON: None. TECHNIQUE: The patient ingested a semi-solid meal of oatmeal. There was no vomiting postprandially. Anterior and posterior planar images of the upper abdomen were a total of 60 minutes. Regions of interest were drawn, and a geometric mean was used to calculate a [id number] . Medications taken in the past 24 hours that may affect gastric emptying: None RADIOPHARMACEUTICAL : Technetium 99 M sulfur colloid DOSE 1.1mCi intravenous. FINDINGS: During the time of imaging, gastroesophageal reflux was not identified. Linear fit gastric emptying half-time of 68.5 minutes. Gastric emptying at 23.5 minutes of 33%, 47.5 minutes of 37%, and at 59.5 minutes of 40%. NM/Gastric Emptying Study IMPRESSION: Normal semi solid phase gastric emptying. Reading Location: [place] [address] CC: Dr. Cydney Mcknight MD Clothing Manager: Signed Normal [facility] C. trachomatis+N. gonorrhoea e DNA GÓMEZ+probe Ql (Unsp spec)on 04-25-2025 C. trachomatis rRNA GÓMEZ+probe Ql (Unsp spec) Not detected Normal Not detected [facility] [place] Comment on above: Order Comment: Speci men Type: URINE SPECIMEN Ordering Facility: [facility] Address: [address] [place] [address] Performed By: #### 3 6902-5, TRVAMP #### [facility] CLIA [id number] [address] [place] [address] [place] N. gonorrhoeae rRNA GÓMEZ+probe Ql (Unsp spec) Not detected Normal Not detected [facility] Comment on above: Order Comment: Speci men Type: URINE SPECIMEN Ordering Facility: [facility] Address: [address] [place] [address] Performed By: #### 3 6902-5, TRVAMP #### [facility] CLIA [id number] [address] [place] [address] [place] PO CNOVon 04-25-2025 CNOV Office Visit (UCWSTR) ---- PABLO STANLEY ([id number]) 1965 M Date Time Provider Department 04/25/25 12:15 PM PETER FREEDMAN [facility] During your visit today, we recorded the following information about you: Temperature Pulse Respiration Blood pressure 97.5 degrees 72/minute 18/minute 124/80 Weight 67.3 kg Nash Bess [facility] 05/01/2025 11:13 AM Signed Telephone Outreach for PrEP Education Called patient and provided education on HIV pre-exposure prophylaxis Patient has not heard of PrEP before Patient is not interested in starting PrEP and would like to get tested for HIV. Will pend lab for our HIV provider team as patient does not have a PCP. Nash Bess [facility] Peter Freedman MD 04/25/2025 12:45 PM Addendum [facility] Subjective Pablo Stanley is a 59 year old male. Patient presents with: STD: Possible trichinosis Patient presents with trichomonas exposure. Treated for trichomonas last year. Same partner has tested positive for trichomonas again and possibly yeast. He has slight discharge and the foreskin is slightly sore when retracted. Otherwise denies fever, chills, nausea, abdominal pain, back pain, blisters, ulcerations, or current bumps. He had a bump on the left side of the scrotum about a month ago which she opened and squeezed; it has since resolved. Review of Systems Objective BP 124/80 Pulse 72 Temp 36.4 ?C (97.5 ?F) Resp 18 Wt 67.3 kg (148 lb 5.9 oz) SpO2 97% Physical Exam Constitutional: General: He is not in acute distress. Cardiovascular: Rate and Rhythm: Normal rate and regular rhythm. Pulmonary: Effort: Pulmonary effort is normal. Breath sounds: Normal breath sounds. Abdominal: General: There is no distension. Palpations: Abdomen is soft. There is no mass. Tenderness: There is no abdominal tenderness. There is no right CVA tenderness or left CVA tenderness. Genitourinary: Penis: Discharge (Clear moisture between the foreskin and glans) present. No paraphimosis, erythema, tenderness, swelling or lesions. Comments: No residual abnormality on the left scrotum Neurological: Mental Status: He is alert. {ASSESSMENT/PLAN: 1. Exposure to trichomonas - ICD9: V01.6, ICD10: Z20.2 Screen for - GONORRHEA/CHLAMYDIA NAAT - TRICHOMONAS VAGINALIS NAAT Treat for likely trichomonas - METRONIDAZOLE 500 MG TABLET Peter Freedman MD Differential Diagnoses - Trichomoniasis is more likely for the following reason(s): Exposure - resolved scrotal pustule or inclusion cyst is more likely for the following reason(s): suggested by HANDP Additional Tests or Interventions The following medication(s) were considered but not ordered: will treat GC/CT with antibiotic if present Procedures Allergies As of Date: 04/25/2025 (No Known Allergies) Date Reviewed: 04/25/2025 Reviewed by: Dominique Carver MA - Fully Assessed Reason for Visit: STD [102] Cmt: Possible trichinosis Primary Visit Diagnosis:Exposure to trichomonas [Z20.2] Order(s):GONORRHEA/ CHLAMYDIA NAAT [SQGCCT] Order #: [id number]. #:[id number] TRICHOMONAS VAGINALIS NAAT [SQTRVAMP] Order #: [id number] FUTURE [] metroNIDAZOLE (FLAGYL) 500 mg tabletTake 4 tablets by mouth one time only for 1 dose.Disp: 4 tabletRfl: 0 TRICHOMONAS VAGINALIS NAAT [SQTRVAMP] Order #: [id number]. #:[id number] Problem List As Of Date: 04/25/2025 (None) Prescriptions ordered this encounter Disp Refills Start End METRONIDAZOLE 500 MG TABLET 4 ta* 0 04/25/2025 04/25/2025 Route: PO Sig: Take 4 tablets by mouth one time only for 1 dose. Level of Service: OFFICE/OUTPATIENT ESTABLISHED MOD MDM 30 MIN [80518] Letter Text Encounter Status:Closed by PETER FREEDMAN on 04/25/25 [facility] TRICHOMONAS VAGINALIS NAATon 04-25-2025 T. vaginalis DNA GÓMEZ+probe Ql (Unsp spec) Detected Abnormal Not detected [facility] Comment on above: Order Comment: Speci men Type: URINE SPECIMEN Ordering Facility: [facility] Address: [address] [place] [address] Performed By: #### 3 6902-5, TRVAMP #### [facility] CLIA [id number] [address] [place] [address] [place] OF [facility] Absolute lymphocyte countOrd ered By: Cydney Mcknight on 04-12-2025 Lymphocytes Auto (Unsp spec) [#/Vol] 1.89 10*3/uL 0.83-4.[address] [facility] Absolute neutrophil countOrd ered By: Cydney Mcknight on 04-12-2025 Neutrophils (Bld) [#/Vol] 2.3 10*3/uL 2.0-7.[address] [facility] Anion gap in Serum or Plasma Ordered By: Cydney Mcknight on 04-12-2025 Anion gap [Moles/Vol] 11 mmol/L 5-15 [facility] Automated lymphocyte count a s percentage of total leukocytesOrdered By: Cydney Mcknight on 04-12-2025 Lymphocytes/100 WBC Auto (Unsp spec) 38.7 % 19-[address] [facility] BUN/creatinine ratioOrdered By: Cydney Mcknight on 04-12-2025 Urea nitrogen/Creatinine [Mass ratio] 14.3 mg/mg 10-[address] [facility] Basophil percentageOrdered B y: Cydney Mcknight on 04-12-2025 Basophils/100 WBC (Bld) 1.0 % 0-1 [facility] Bilirubin, totalOrdered By: Cydney Mcknight on 04-12-2025 Bilirubin [Mass/Vol] 0.19 mg/dL 0.00-1.30 [facility] Blood manual differential co mment interpretation (narrative result)Ordered By: Cydney Mcknight on 04-12-2025 Manual differential comment Santhosh (Bld) [Interp] SCANNED [facility] CBC W/Diff, Automatedon ATYPICAL LYMPH 1+ Normal [facility] Comment on above: Performed By: #### L 500.4100, L100.0100, L500.4050 #### [facility] [address] [place], [address] SMEAR COMMENT SCANNED Normal [facility] Comment on above: Performed By: #### L 500.4100, L100.0100, L500.4050 #### [facility] [address] [place], [address] Calculated very low density lipoprotein (VLDL) cholesterol measurementOrdered By: Cydney Mcknight on 04-12-2025 Calculated very low density lipoprotein (VLDL) cholesterol measurement 8 mg/dL 5-[address] [facility] Carbon dioxide, total [Moles /volume] in Central venous bloodOrdered By: Cydney Mcknight on 04-12-2025 CO2 [Moles/Vol] 23.7 mmol/L 21.0-32.[address] [facility] Chloride assayOrdered By: Aaron Mcknight on 04-12-2025 Chloride [Moles/Vol] 106 mmol/L 98-108 [facility] Comprehensive Metabolic Prof ilon 04-12-2025 Albumin [Mass/Vol] 4.2 g/dL Normal 3.5-5.0 [facility] Comment on above: Performed By: #### L 500.4100, L100.0100, L500.4050 #### [facility] [address] [place], [address] Albumin/Globulin [Mass ratio] 1.5 {ratio} Normal 0.9-2.[address] [facility] Comment on above: Performed By: #### L 500.4100, L100.0100, L500.4050 #### [facility] [address] [place], [address] ALK PHOS 115 U/L Normal 40-[address] [facility] Comment on above: Performed By: #### L 500.4100, L100.0100, L500.4050 #### [facility] [address] [place], [address] ALT [Catalytic activity/Vol] 13 U/L Normal <=[address] [facility] Comment on above: Performed By: #### L 500.4100, L100.0100, L500.4050 #### [facility] [address] [place], [address] AST [Catalytic activity/Vol] 21 U/L Normal <=[address] [facility] Comment on above: Performed By: #### L 500.4100, L100.0100, L500.4050 #### [facility] [address] [place], [address] Bilirubin [Mass/Vol] 0.19 mg/dL Normal 0.00-1.30 [facility] Comment on above: Performed By: #### L 500.4100, L100.0100, L500.4050 #### [facility] [address] [place], [address] BUN/CRE 14.3 RATIO Normal 10-[address] [facility] Comment on above: Performed By: #### L 500.4100, L100.0100, L500.4050 #### [facility] [address] [place], [address] Calcium [Mass/Vol] 9.0 mg/dL Normal 7.6-11.0 [facility] Comment on above: Performed By: #### L 500.4100, L100.0100, L500.4050 #### [facility] [address] [place], [address] Chloride [Moles/Vol] 106 mmol/L Normal 98-108 [facility] Comment on above: Performed By: #### L 500.4100, L100.0100, L500.4050 #### [facility] [address] [place], [address] CO2 [Moles/Vol] 23.7 mmol/L Normal 21.0-32.[address] [facility] Comment on above: Performed By: #### L 500.4100, L100.0100, L500.4050 #### [facility] [address] [place], [address] Creatinine [Mass/Vol] 0.81 mg/dL Normal 0.70-1.20 [facility] Comment on above: Performed By: #### L 500.4100, L100.0100, L500.4050 #### [facility] [address] [place], [address] GAP 11 Normal 5-[address] [facility] Comment on above: Performed By: #### L 500.4100, L100.0100, L500.4050 #### [facility] [address] [place], [address] GFR/1.73 sq M.predicted among non-blacks MDRD (S/P/Bld) [Vol rate/Area] 103 mL/min/{1.73_m2} Normal >[address] [facility] Comment on above: Result Comment: mL/m in/1.73m2 CKD-EPI Creatinine Equation (2020) Performed By: #### L 500.4100, L100.0100, L500.4050 #### [facility] [address] [place], [address] Globulin (S) [Mass/Vol] 2.7 g/dL Normal 2.2-4.2 [facility] Comment on above: Performed By: #### L 500.4100, L100.0100, L500.4050 #### [facility] [address] [place], [address] Glucose [Mass/Vol] 90 mg/dL Normal 70-99 [facility] Comment on above: Performed By: #### L 500.4100, L100.0100, L500.4050 #### [facility] [address] [place], [address] Potassium [Moles/Vol] 4.0 mmol/L Normal 3.3-5.1 [facility] Comment on above: Performed By: #### L 500.4100, L100.0100, L500.4050 #### [facility] [address] [place], [address] Sodium [Moles/Vol] 140 mmol/L Normal 133-145 [facility] Comment on above: Performed By: #### L 500.4100, L100.0100, L500.4050 #### [facility] [address] [place], [address] T PROT 6.9 g/dL Normal 5.9-8.[address] [facility] Comment on above: Performed By: #### L 500.4100, L100.0100, L500.4050 #### [facility] [address] [place], [address] Urea nitrogen [Mass/Vol] 12 mg/dL Normal 4-[address] [facility] Comment on above: Performed By: #### L 500.4100, L100.0100, L500.4050 #### [facility] [address] [place], [address] Eosinophil percentageOrdered By: Cydney Mcknight on 04-12-2025 Eosinophils/100 WBC (Bld) 2.5 % 0-[address] [facility] Erythrocyte distribution wid th ratioOrdered By: Cydney Mcknight on 04-12-2025 Erythrocyte distribution width (RBC) [Ratio] 13.7 % 11.6-14.[address] [facility] Erythrocyte distribution wid th standard deviationOrdered By: Cydney Mcknight on 04-12-2025 Erythrocyte distribution width (RBC) [Ratio] 42.4 fl 35.1-43.[address] [facility] Glomerular filtration rate ( GFR) estimation/1.73 sq m using serum, plasma, or whole bOrdered By: Cydney Mcknight on 04-12-2025 GFR/1.73 sq M.predicted among non-blacks MDRD (S/P/Bld) [Vol rate/Area] 103 mL/min/{1.73_m2} >[address] [facility] Comment on above: mL/min/1.73m2 CKD-EP I Creatinine Equation (2020) Hematocrit Auto (Bld) [Volum e fraction]Ordered By: Cydney Mcknight on 04-12-2025 Hematocrit (Bld) [Volume fraction] 42.0 % 40-[address] [facility] Hemoglobin measurementOrdere d By: Cydney Mcknight on 04-12-2025 Hemoglobin (Bld) [Mass/Vol] 13.7 g/dL 13.0-16.[address] [facility] Immature granulocytes/100 WB C Auto (Bld)Ordered By: Cydney Mcknight on 04-12-2025 Immature granulocytes/100 WBC (Bld) 0.200 % 0.0-0.[address] [facility] Comment on above: IG% - Immature Granu locytes (promyelocytes, myelocytes and metamyelocytes) > 1% indicates that a LEFT SHIFT is Present. LDL calc ser/plasOrdered By: Cydney Mcknight on 04-12-2025 Cholesterol in LDL [Mass/Vol] 92 mg/dL [facility] Comment on above: Fhueawsbtk=556-911 m g/dL & Higher Sxlt=196 mg/dL or greater Laboratory - Chemistry and C hemistry - challengeOrdered By: Cdyney Mcknight on 04-12-2025 AST [Catalytic activity/Vol] 21 U/L <[address] [facility] Lipid Profileon 04-12-2025 CHOL:HDL 2.[address] [facility] Comment on above: Performed By: #### L 500.4100, L100.0100, L500.4050 #### [facility] [address] [place], [address] Cholesterol [Mass/Vol] 156 mg/dL Normal <=200 [facility] Comment on above: Result Comment: Chol esterol level, Desirable <200 mg/dL Borderline high cholesterol 200-239 mg/dL High cholesterol >=240 mg/dL Recommendations of the NCEP Adult Treatment Panel for the following risk-cutoff thresholds for the [place] population. Performed By: #### L 500.4100, L100.0100, L500.4050 #### [facility] [address] [place], [address] Cholesterol in HDL [Mass/Vol] 57 mg/dL Normal [facility] Comment on above: Result Comment: Emily onal Cholesterol Education Program (NCEP) guidelines: <40 mg/dL: Low HDL-cholesterol (major risk factor for CHD) >= 60 mg/dL: High HDL-cholesterol (negative risk factor for CHD) HDL-cholesterol is affected by a number of factors, e.g. smoking, exercise, hormones, sex and age. Performed By: #### L 500.4100, L100.0100, L500.4050 #### [facility] [address] [place], [address] Cholesterol in LDL [Mass/Vol] 92 mg/dL Normal [facility] Comment on above: Result Comment: Bord ydeakn=296-834 mg/dL Higher Temz=071 mg/dL or greater Performed By: #### L 500.4100, L100.0100, L500.4050 #### [facility] [address] [place], [address] Cholesterol in VLDL [Mass/Vol] 8 mg/dL Normal 5-[address] [facility] Comment on above: Performed By: #### L 500.4100, L100.0100, L500.4050 #### [facility] [address] [place], [address] Triglyceride [Mass/Vol] 38 mg/dL Normal [facility] Comment on above: Result Comment: The drugs N-Acetylcysteine and Metamizole may falsely depress this assay. Normal range: <150 mg/dL Borderline High: 150-199 mg/dL High: 200-499 mg/dL Very High: >500 mg/dL Performed By: #### L 500.4100, L100.0100, L500.4050 #### [facility] [place], [address] MCV (mean corpuscular volume ) determinationOrdered By: Cydney Mcknight on 04-12-2025 MCV (RBC) [Entitic vol] 83.8 fL 80-94 [facility] Mean corpuscular hemoglobin (MCH) determinationOrdered By: Cydney Mcknight on 04-12-2025 MCH (RBC) [Entitic mass] 27.3 pg 27.0-32.[address] [facility] Mean corpuscular hemoglobin concentration (MCHC) determinationOrdered By: Cydney Mcknight on 04-12-2025 MCHC (RBC) [Mass/Vol] 32.6 g/dL 32-36 [facility] Mean platelet volume determi nationOrdered By: Cydney Mcknight on 04-12-2025 Platelet mean volume (Bld) [Entitic vol] 11.4 fL 6.2-12.[address] [facility] Monocyte percentageOrdered B y: Cydney Mcknight on 04-12-2025 Monocytes/100 WBC (Bld) 9.8 % 0-10 [facility] Neutrophil percentageOrdered By: Cydney Mcknight on 04-12-2025 Neutrophils/100 WBC (Bld) 47.8 % 47-[address] [facility] Nucleated red blood cell per centageOrdered By: Cydney Mcknight on 04-12-2025 Nucleated RBC/100 WBC (Bld) [Ratio] 0 % 0-[address] [facility] Platelet countOrdered By: Aaron Mcknight on 04-12-2025 Platelets (Bld) [#/Vol] 258 10*3/uL 150-[address] [facility] Potassium measurement (mass/ volume)Ordered By: Cydney Mcknight on 04-12-2025 Potassium (Unsp spec) [Mass/Vol] 4.0 mmol/L 3.3-5.[address] [facility] RBC Auto (Bld) [#/Vol]Ordere d By: Cydney Mcknight on 04-12-2025 RBC (Bld) [#/Vol] 5.01 10*6/uL 4.6-6.2 [facility] Screening total cholesterol/ high density lipoprotein (HDL) cholesterol ratioOrdered By: Cydney Mcknight on 04-12-2025 Cholesterol.total/Maria Teresa sterol in HDL [Mass ratio] 2.75 {ratio} [facility] Serum creatinine measurement (mass/volume)Ordered By: Cydney Mcknight on 04-12-2025 Creatinine [Mass/Vol] 0.81 mg/dL 0.70-1.20 [facility] Serum globulin measurementOr dered By: Cydney Mcknight on 04-12-2025 Globulin (S) [Mass/Vol] 2.7 g/dL 2.2-4.2 [facility] Serum glucose measurement (m ass/volume)Ordered By: Cydney Mcknight on 04-12-2025 Glucose [Mass/Vol] 90 mg/dL 70-99 [facility] Serum or plasma alanine tang otransferase (ALT) measurementOrdered By: Cydney Mcknight on 04-12-2025 ALT [Catalytic activity/Vol] 13 U/L <[address] [facility] Serum or plasma albumin ale urement (mass/volume)Ordered By: Cydney Mcknight on 04-12-2025 Albumin [Mass/Vol] 4.2 g/dL 3.5-5.0 [facility] Serum or plasma albumin/glob ulin mass ratioOrdered By: Cydney Mcknight on 04-12-2025 Albumin/Globulin [Mass ratio] 1.5 {ratio} 0.9-2.[address] [facility] Serum or plasma alkaline jenny sphatase measurementOrdered By: Cydney Mcknight on 04-12-2025 ALP [Catalytic activity/Vol] 115 U/L 40-[address] [facility] Serum or plasma calcium ale urement (mass/volume)Ordered By: Cydney Mcknight on 04-12-2025 Calcium [Mass/Vol] 9.0 mg/dL 7.6-11.0 [facility] Serum or plasma cholesterol in HDL measurement (mass/volume)Ordered By: Cydney Mcknight on 04-12-2025 Cholesterol in HDL [Mass/Vol] 57 mg/dL >[address] [facility] Comment on above: National Cholesterol Education Program (NCEP) guidelines:<40 mg/dL: Low HDL-cholesterol (major risk factor for CHD)>= 60 mg/dL: High HDL-cholesterol (negative risk factor for CHD)HDL-cholesterol is affected by a number of factors, e.g. smoking, exercise, hormones, sex and age. Serum or plasma cholesterol measurement (mass/volume)Ordered By: Cydney Mcknight on 04-12-2025 Cholesterol [Mass/Vol] 156 mg/dL <201 [facility] Comment on above: Cholesterol level, D esirable <200 mg/dLBorderline high cholesterol 200-239 mg/dLHigh cholesterol >=240 mg/dLRecommendations of the NCEP Adult Treatment Panel for the following risk-cutoff thresholds for the [place] population. Serum or plasma urea nitroge n measurement (mass/volume)Ordered By: Cydney Mcknight on 04-12-2025 Urea nitrogen [Mass/Vol] 12 mg/dL 4-[address] [facility] Sodium levelOrdered By: Woody Mcknight on 04-12-2025 Sodium [Moles/Vol] 140 mmol/L 133-145 [facility] Total proteinOrdered By: Pedro Mcknight on 04-12-2025 Protein [Mass/Vol] 6.9 g/dL 5.9-8.4 [facility] Triglycerides measurementOrd ered By: Cydney Mcknight on 04-12-2025 Triglyceride [Mass/Vol] 38 mg/dL <199 [facility] Comment on above: The drugs N-Acetylcy steine and Metamizole may falsely depress this assay. Normal range: <150 mg/dLBorderline High: 150-199 mg/dLHigh: 200-499 mg/dLVery High: >500 mg/dL White blood cell (WBC) count Ordered By: Cydney Mcknight on 04-12-2025 WBC (Bld) [#/Vol] 4.9 10*3/uL 4.4-11.0 [facility] Internal Medicine Office Vis coleen 04-11-2025 Internal Medicine Office Visit [facility] [address] [place], [place] [address] OFFICE VISIT Date of Service: 04/11/25 MR#: [id number] Acct: [id number] Name: PABLO STANLEY Rep #: [id number] : [id number] Provider: Dr. Cydney gardner MD Age/Sex: 59/M Location: [facility] Status: Signed Intake Vital Signs 04/11/25 13:18 [...] Complaint: Establish care. Concerns with bowel movement Director Of Land Required: No Is patient in pain?: No [...] No change or odd color/smell or charachteristics. [facility] Medical History (Updated 04/11/25 @ 14:[address] Cydney Mcknight MD) Encounter to establish care Elevated blood pressure reading without diagnosis of hypertension Abnormal bowel movement Preventative health care Social History (Updated 04/11/25 @ 13:07 by Anat Moon MA) adopted: No household members: significant other and children number of children: 6 current occupational status: employed current occupation: [employer] pets and animals: Yes pets and animals: [...] breath, d (more content not included)... Normal [facility] C. trachomatis+N. gonorrhoea e DNA GÓMEZ+probe Ql (Unsp spec)on 02-24-2024 C. trachomatis rRNA GÓMEZ+probe Ql (Unsp spec) Negative Negative for Chlamydia trachomatis by amplificaton [facility] N. gonorrhoeae rRNA GÓMEZ+probe Ql (Unsp spec) Negative Negative for Neisseria gonorrhoeae by amplification [facility] No Panel Informationon 02-23 [facility] TRICHOMONAS VAGINALIS NAATon 02-24-2024 T. vaginalis DNA GÓMEZ+probe Ql (Unsp spec) Positive Abnormal Negative for Trichomonas vaginalis by amplification [facility] Vital Signs Date Time Vital Sign Value Performing Clinician Facility 07-18-2025 13:10-0400 Body height 177.8 cm No Primary Care Physician [facility] 07-18-2025 13:10-0400 Body mass index (BMI) [Ratio] 22.1 kg/m2 No Primary Care Physician [facility] 07-18-2025 13:10-0400 Body temperature 98.9 [degF] No Primary Care Physician [facility] 07-18-2025 13:10-0400 Body weight 69.85 kg No Primary Care Physician [facility] 07-18-2025 13:10-0400 Diastolic blood pressure 74 mm[Hg] No Primary Care Physician [facility] 07-18-2025 13:10-0400 Heart rate 74 /min No Primary Care Physician [facility] 07-18-2025 13:10-0400 Respiratory rate 16 /min No Primary Care Physician [facility] 07-18-2025 13:10-0400 SaO2% (BldA) [Mass fraction] 99 % No Primary Care Physician [facility] 07-18-2025 13:10-0400 Systolic blood pressure 116 mm[Hg] No Primary Care Physician [facility] 06-24-2025 07:36-0400 Body height 177.8 cm No Primary Care Physician [facility] 06-24-2025 07:36-0400 Body mass index (BMI) [Ratio] 21.7 kg/m2 No Primary Care Physician [facility] 06-24-2025 07:36-0400 Body temperature 97.7 [degF] No Primary Care Physician [facility] 06-24-2025 07:36-0400 Body weight 68.49 kg No Primary Care Physician [facility] 06-24-2025 07:36-0400 Diastolic blood pressure 60 mm[Hg] No Primary Care Physician [facility] 06-24-2025 07:36-0400 Respiratory rate 16 /min No Primary Care Physician [facility] 06-24-2025 07:36-0400 Systolic blood pressure 108 mm[Hg] No Primary Care Physician [facility] 06-15-2025 13:06-0400 Body height 177.8 cm No Primary Care Physician [facility] 06-15-2025 13:06-0400 Body mass index (BMI) [Ratio] 21.5 kg/m2 No Primary Care Physician [facility] 06-15-2025 13:06-0400 Body temperature 97.8 [degF] No Primary Care Physician [facility] 06-15-2025 13:06-0400 Body weight 68.03 kg No Primary Care Physician [facility] 06-15-2025 13:06-0400 Diastolic blood pressure 68 mm[Hg] No Primary Care Physician [facility] 06-15-2025 13:06-0400 Heart rate 94 /min No Primary Care Physician [facility] 06-15-2025 13:06-0400 Respiratory rate 18 /min No Primary Care Physician [facility] 06-15-2025 13:06-0400 SaO2% (BldA) [Mass fraction] 99 % No Primary Care Physician [facility] 06-15-2025 13:06-0400 Systolic blood pressure 128 mm[Hg] No Primary Care Physician [facility] 05-31-2025 12:52-0400 Body height 177.8 cm No Primary Care Physician [facility] 05-31-2025 12:52-0400 Body mass index (BMI) [Ratio] 21.7 kg/m2 No Primary Care Physician [facility] 05-31-2025 12:52-0400 Body temperature 98.7 [degF] No Primary Care Physician [facility] 05-31-2025 12:52-0400 Body weight 68.57 kg No Primary Care Physician [facility] 05-31-2025 12:52-0400 Diastolic blood pressure 79 mm[Hg] No Primary Care Physician [facility] 05-31-2025 12:52-0400 Heart rate 79 /min No Primary Care Physician [facility] 05-31-2025 12:52-0400 Respiratory rate 16 /min No Primary Care Physician [facility] 05-31-2025 12:52-0400 SaO2% (BldA) [Mass fraction] 99 % No Primary Care Physician [facility] 05-31-2025 12:52-0400 Systolic blood pressure 127 mm[Hg] No Primary Care Physician [facility] 04-25-2025 12:18-0400 Body temperature 97.5 [degF] Peter Freedman MD Work Phone: [facility] 04-25-2025 12:18-0400 Body weight 67.3 kg Peter Freedman MD Work Phone: [facility] 04-25-2025 12:18-0400 Diastolic blood pressure 80 mm[Hg] Peter Freedman MD Work Phone: [facility] 04-25-2025 12:18-0400 Heart rate 72 /min Peter Freedman MD Work Phone: [facility] 04-25-2025 12:18-0400 Respiratory rate 18 /min Peter Freedman MD Work Phone: [facility] 04-25-2025 12:18-0400 SaO2% (BldA) [Mass fraction] 97 % Peter Freedman MD Work Phone: [facility] 04-25-2025 12:18-0400 Systolic blood pressure 124 mm[Hg] Peter Freedman MD Work Phone: [facility] 04-11-2025 13:18-0400 Body height 177.8 cm No Primary Care Physician [facility] 04-11-2025 13:18-0400 Body mass index (BMI) [Ratio] 21.5 kg/m2 No Primary Care Physician [facility] 04-11-2025 13:18-0400 Body temperature 99.1 [degF] No Primary Care Physician [facility] 04-11-2025 13:18-0400 Body weight 68.03 kg No Primary Care Physician [facility] 04-11-2025 13:18-0400 Diastolic blood pressure 90 mm[Hg] No Primary Care Physician [facility] 04-11-2025 13:18-0400 Heart rate 85 /min No Primary Care Physician [facility] 04-11-2025 13:18-0400 Respiratory rate 16 /min No Primary Care Physician [facility] 04-11-2025 13:18-0400 SaO2% (BldA) [Mass fraction] 99 % No Primary Care Physician [facility] 04-11-2025 13:18-0400 Systolic blood pressure 134 mm[Hg] No Primary Care Physician [facility] 02-23-2024 11:41-0400 Body temperature 97.11 [degF] Ishaan Rodriguez AUTOMATIC PAD MAKING MACHINE OPERATOR.MEDICAL EDUCATOR Work Phone: [facility] 02-23-2024 11:41-0400 Body weight 68 kg Ishaan Rodriguez AUTOMATIC PAD MAKING MACHINE OPERATOR.MEDICAL EDUCATOR Work Phone: [facility] 02-23-2024 11:41-0400 Diastolic blood pressure 68 mm[Hg] Ishaan Rodriguez AUTOMATIC PAD MAKING MACHINE OPERATOR.MEDICAL EDUCATOR Work Phone: [facility] 02-23-2024 11:41-0400 Heart rate 86 /min Ishaan Rodriguez AUTOMATIC PAD MAKING MACHINE OPERATOR.MEDICAL EDUCATOR Work Phone: [facility] 02-23-2024 11:41-0400 Respiratory rate 16 /min Ishaan Rodriguez AUTOMATIC PAD MAKING MACHINE OPERATOR.MEDICAL EDUCATOR Work Phone: [facility] 02-23-2024 11:41-0400 SaO2% (BldA) [Mass fraction] 99 % Ishaan Rodriguez AUTOMATIC PAD MAKING MACHINE OPERATOR.MEDICAL EDUCATOR Work Phone: [facility] 02-23-2024 11:41-0400 Systolic blood pressure 110 mm[Hg] Ishaan Rodriguez AUTOMATIC PAD MAKING MACHINE OPERATOR.MEDICAL EDUCATOR Work Phone: [facility] 04-30-2023 15:51-0400 Body temperature 97.39 [degF] Brant Isaiah AUTOMATIC PAD MAKING MACHINE OPERATOR.MEDICAL EDUCATOR Work Phone: [facility] 04-30-2023 15:51-0400 Body weight 67.41 kg Brant Isaiah AUTOMATIC PAD MAKING MACHINE OPERATOR.MEDICAL EDUCATOR Work Phone: [facility] 04-30-2023 15:51-0400 Diastolic blood pressure 70 mm[Hg] Brant Isaiah AUTOMATIC PAD MAKING MACHINE OPERATOR.MEDICAL EDUCATOR Work Phone: [facility] 04-30-2023 15:51-0400 Heart rate 80 /min Brant Isaiah AUTOMATIC PAD MAKING MACHINE OPERATOR.MEDICAL EDUCATOR Work Phone: [facility] 04-30-2023 15:51-0400 Respiratory rate 18 /min Brant Isaiah AUTOMATIC PAD MAKING MACHINE OPERATOR.MEDICAL EDUCATOR Work Phone: [facility] 04-30-2023 15:51-0400 SaO2% (BldA) [Mass fraction] 98 % Brant Isaiah AUTOMATIC PAD MAKING MACHINE OPERATOR.MEDICAL EDUCATOR Work Phone: [facility] 04-30-2023 15:51-0400 Systolic blood pressure 120 mm[Hg] Brant Isaiah AUTOMATIC PAD MAKING MACHINE OPERATOR.MEDICAL EDUCATOR Work Phone: [facility] Encounters Encounter Date Encounter Type Care Provider Facility Start: 07-25-2025 ambulatory Cydney Thibodeaux ty:[facility] Start: 07-18-2025 End: 07-18-[address] Cydney Mcknight MD -[facility] Work Phone: Start: 07-18-2025 End: 07-18-2025 ambulatory No Primary Care Physician -[facility] Start: 06-24-2025 End: 06-24-2025 Patient encounter procedure Anish HARRISON -[facility] Work Phone: Start: 06-24-2025 End: 06-24-2025 ambulatory No Primary Care Physician -[facility] Start: 06-15-2025 End: 06-15-[address] Cydney Mcknight MD -[facility] Work Phone: Start: 06-15-2025 End: 06-15-2025 ambulatory No Primary Care Physician -[facility] Start: 06-07-[facility] Start: 05-31-2025 End: 05-31-2025 Patient encounter procedure Jennifer Dickson NP-C -[facility] Work Phone: Start: 05-31-2025 End: 05-31-2025 ambulatory No Primary Care Physician -[facility] Start: 05-31-2025 End: 05-31-2025 ambulatory Jennifer Dickson NP Facility:[facility] Start: 05-03-2025 End: 05-03-2025 ambulatory No Primary Care Physician -[facility] Start: 05-03-2025 End: 05-03-[address] Cydney Mcknight MD -[facility] Work Phone: Start: 05-03-2025 End: 05-03-2025 [facility] Facility:[facility] Start: 04-26-2025 End: 04-26-2025 Follow-up encounter Brant Colon APRN.CNP Work Phone: [facility] Comment on above: Results Start: 04-25-2025 End: 04-25-2025 Office outpatient visit 25 minutes Peter Freedman MD Work Phone: [facility] Comment on above: Exposure to trichomo max (Primary Dx) Start: 04-25-2025 End: 04-25-2025 ambulatory PETER FREEDMAN Facility:[facility] Start: 04-14-2025 Encounter for genera l adult medical examination without abnormal findings [facility] Start: 04-12-2025 End: 04-12-2025 ambulatory No Primary Care Physician [facility] Work Phone: Start: 04-12-2025 End: 04-12-[address] Cydney Mcknight MD -Laboratory Work Phone: Start: 04-11-2025 End: 04-11-[address] Cydney Mcknight MD -[facility] Work Phone: Start: 04-11-2025 End: 04-11-[address] Cydney Mcknight MD [facility] Start: 04-11-2025 End: 04-12-2025 ambulatory No Primary Care Physician [facility] Work Phone: Start: 02-24-2024 Telephone encounter Nereyda HARRISON Work Phone: [facility] Comment on above: Results Start: 02-24-2024 End: 02-24-2024 Subsequent hospital visit by physician [facility] Work Phone: Radiology Comment on above: Testicular mass [N50 .89] Start: 02-23-2024 End: 02-23-2024 Office outpatient visit 15 minutes Ishaan Rodriguez APRN.MEDICAL EDUCATOR Work Phone: [facility] Comment on above: Screening for STD (s exually transmitted disease) (Primary Dx); Testicular mass Start: 04-30-2023 End: 04-30-2023 Patient encounter procedure Brant Colon APRN.MEDICAL EDUCATOR Work Phone: [facility] Comment on above: Bilateral impacted c erumen (Primary Dx) Procedures Date Procedure Procedure Detail Performing Clinician Start: 05-31-2025 CT of chest No Primary Care Physician Start: 05-03-2025 Radionuclide gastric emptying study No Primary Care Physician Start: 04-12-2025 Lymphocyte percent differential count No Primary Care Physician Start: 02-24-2024 Dup-scan artl awais abdl/pel/scrot&/rpr orgn com Ishaan Rodriguez APRN.MEDICAL EDUCATOR Work Phone: Start: 02-24-2024 Us scrotum & contents J uche Michael AUTOMATIC PAD MAKING MACHINE OPERATOR.MEDICAL EDUCATOR Work Phone: Start: 02-23-2024 Iadna chlamydia trachomatis amplified probe tq Ishaan Michael AUTOMATIC PAD MAKING MACHINE OPERATOR.MEDICAL EDUCATOR Work Phone: Plan of Treatment Date Care Activity Detail Author Start: 07-11-2025 Influenza vaccination Influenz a Vaccine (Season Ended) [facility] Start: 04-25-2025 End: 07-25-2025 TRICHOMONAS VAGINALIS NAAT [facility] Work Phone: Comment on above: Expected: 04/25/2025 , Expires: 07/25/2025 Start: 04-11-2025 Patient referral [facility] Work Phone: Start: 07-11-2024 Covid-19 Vaccine ( season) Covid-19 Vaccine ( season) [facility] Start: 07-11-2024 Influenza vaccination Influenz a Vaccine (Season Ended) [facility] Start: 11-10-2023 Behavioral Health Screening Behavioral Health Screening [facility] Start: 07-11-2023 Covid-19 Vaccine ( season) Covid-19 Vaccine ( season) [facility] Start: 07-11-2023 Influenza vaccination INFLUENZ A (Season Ended) [facility] Start: 11-10-2022 DEPRESSION ASSESSMENT DEPRESSION ASS ESSMENT [facility] Start: 2022 PROSTATE CANCER SCREENING DISCUSSION PROSTATE CANCER SCREENING DISCUSSION [facility] Start: 2022 Prostate specific antigen measurement Prostate Cancer Screening Discussion [facility] Start: 04-26-2021 COVID-19 VACCINE (3 - Booster for Moderna series) COVID-19 VACCINE (3 - Booster for Moderna series) [facility] Start: 2017 SHINGRIX VACCINE (1 of 2) SHINGRIX VACCINE (1 of 2) [facility] Start: 2012 COLOGUARD (FIT-DNA) COLOGUARD (FIT-D NA) [facility] Start: 2012 Colonoscopy COLONOSCOPY [facility] Start: 2012 COLORECTAL CANCER SCREENING COLORECTAL CANCER SCREENING [facility] Start: [address] COLONOGRAPHY [facility] Start: 2012 DIABETES SCREEN DIABETES SCREEN [facility] Start: 2012 Diabetes Screening Diabetes Screenin g [facility] Start: 2012 FECAL OCCULT BLOOD FECAL OCCULT BLOO D [facility] Start: 2012 Prostate specific antigen measurement Prostate Cancer Screening Discussion [facility] Start: 2012 Screening for malign ant neoplasm of colon [facility] Start: 2012 SIGMOIDOSCOPY SIGMOIDOSCOPY [facility] Start: 2002 Lipid panel Lipid Screening [facility] Start: 2002 LIPID SCREEN LIPID SCREEN [facility] Start: 1986 Hepatitis B Vaccine (1 of 3 - 19+ 3-dose series) Hepatitis B Vaccine (1 of 3 - 19+ 3-dose series) [facility] Start: 1986 Pneumococcal Vaccine : 50+ (1 of 2 - PCV) Pneumococcal Vaccine: 50+ (1 of 2 - PCV) [facility] Start: 1986 Urine microalbumin profile [facility] Start: 1985 Anxiety Screening Anxiety Screening [facility] Start: 1985 Depression Screening Depression Scre ening [facility] Start: 1985 HEPATITIS C SCREENING HEPATITIS C [facility] Start: 1985 Hepatitis C screening Hepatitis C [facility] Start: 1985 HIV SCREENING HIV SCREENING [facility] Start: 1985 HIV screening HIV Screening [facility] Start: 1973 PNEUMOCOCCAL (1 - PCV) PNEUMOCOCCAL (1 - PCV) [facility] Start: 1973 Pneumococcal vaccination Pneumococcal Vaccine (1 of 2 - PCV) [facility] Start: 1967 HEPATITIS B (1 of 3 - 3-dose series) HEPATITIS B (1 of 3 - 3-dose series) [facility] CBC W Auto Different ial panel - Blood [facility] Chlamydia trachomatis+Neisseria gonorrhoeae DNA [Presence] in Unspecified specimen by GÓMEZ with probe detection GONORRHEA/CHLAMYDIA NAAT Lab Routine Exposure to trichomonas 04/25/2025 12:57 PM EDT [facility] Comprehensive metabo lic 1999 panel - Serum or Plasma [facility] CT Chest [facility] Lipid 1996 panel - Serum or Plasma [facility] Patient referral [facility] Work Phone: Radionuclide gastric emptying study [facility] Removal impacted cerumen irrigation/lvg unilat AMBULATORY EAR LAVAGE/IRRIGATION Procedures Routine Bilateral impacted cerumen Ordered: 04/30/2023 [facility] Work Phone: Comment on above: Ordered: 04/30/2023 End: 03-24-2025 US.doppler Scrotum and testicle US SCROTUM AND CONTENTS Radiology STAT Testicular mass 1 Occurrences starting 02/23/2024 until 03/24/2025 [facility] Work Phone: Comment on above: 1 Occurrences starti ng 02/23/2024 until 03/24/2025 XR Cervical spine 2 or 3 Views [facility] Payers Date Payer Category Payer Self-pay 2025 Unknown [id number] 2023 Unknown [id number] 2022 [employer] BLUE CARD PPO OOS [id number] 2022 Unknown [id number] Self-pay [id number] Unknown [id number] Unknown [id number] Unknown [id number] Unknown [id number] Unknown [id number] Unknown [id number] Unknown [id number] Unknown [id number] Unknown [id number] Unknown [id number] Social History Date Type Detail Facility Start: 04-30-2023 End: 05-31-2025 Tobacco smoking status MEIS Smokes tobacco daily [facility] Start: 04-30-2023 Tobacco use and exposure Smokeless tobacco non-user [facility] Start: 04-30-2023 End: 02-23-2024 Alcohol intake Not Asked [facility] Start: 1965 Sex Assigned At Not on file [facility] Start: 02-23-2024 End: 07-19-2024 History of Social function [facility] Start: 02-23-2024 End: 07-19-2024 Tobacco use panel [facility] National Score (1-10 0), lower number is lower risk Not on file [facility] Start: 1965 Sex Assigned At Male [facility] Sexual Orientation Heterosexual (finding) [facility] Clinical Notes 04-30-2023 to 07-18-2025 Note Date & Type Note Facility 07-18-2025 Progress note [facility] 07-18-2025 Progress note Note Date/Time July 18, 2025 1:40pm [facility] [address] [place] [address] [place] [address] OFFICE VISIT Date of Service: 07/18/25 MR#: [id number] Acct: [id number] Name: PABLO STANLEY Jr. Rep #: [id number] : 1965 Provider: Dr. Woody Mcknight MD Age/Sex: 59/M Location: [facility] Status: Signed Intake Vital Signs 04/11/25 13:18 06/24/25 07:36 07/18/25 13:10 Height 5 ft 10 in 5 ft 10 in 5 ft 10 in Weight: 154 lb BMI 22.1 BP 116/74 Blood Pressure Location Lt brachial Position Sitting Respiration 16 Pulse 74 Pulse Source Monitor Temp 98.9 F Temp Source Temporal Pulse Oximetry (%) 99 Oxygen Delivery Method room air Intake Visit Reasons: 3 M FU Chief Complaint: FU Director Of Land Required: No Is patient in pain?: Yes (L shoulder/neck) Pain scale (1-10): 8 Allergies No Known Allergies Allergy (Verified 07/18/25 13:04) Medications ?Medication ?Instructions ?Recorded ?Confirmed ?Type cyclobenzaprine 5 mg tablet 5 mg PO TID muscle spasm # 30 tabs 06/24/25 07/18/25 Rx nortriptyline 10 mg capsule 10 mg PO QHS #90 caps 07/0407/18/25 Rx PFSH Medical History Anxiety disorder Functional gastric disorder Tobacco use disorder, continuous Encounter for screening for malignant neoplasm of lung Encounter to establish care Elevated blood pressure reading without diagnosis of hypertension Abnormal bowel movement Preventative health care Social History adopted: No household members: significant other and children number of children: 6 current occupational status: employed current occupation: [employer] pets and animals: Yes pets and animals: cat(s) and dog(s) sexually active: Yes Smoking Status: Current every day smoker (1/2-1 ppd ) tobacco type: cigarettes Tobacco: How many years used: 25 alcohol intake: never substance use type: marijuana caffeine: No frequency: daily do you feel safe at home: Yes HPI HPI Chief Complaint: FU Details: EARNEST MALA, is a 59-year-old male presenting for follow-up. The patient reports improvement in bowel habits after starting nortriptyline, which was taken as prescribed. He was started on nortriptyline due to concern for possible functional gastric disorder. He states that he has had less time in the bathroom since starting it. No concerning side effects. The patient also reports cervical and shoulder pain that has been persistent, particularly affecting sleep quality. The pain is localized at the back of the neck and shoulders, bilateral in nature. Despite using a muscle relaxant as prescribed, the patient notes no significant relief, especially when the pain intensity increases. Had an x-ray ordered at his last visit which he is yet to get done. He was also referred to spine Ortho, has an appointment on the . Other chronic conditions are stable. Attestation: Documentation on this patient encounter was supported using ambient scribe technology/ voice AI technology. The patient consented to recording for the purpose of documenting the encounter. Provider reviewed content of the generatednote prior to signature. ROS Const Constitutional: No body ache, chills, excessive sweating, fatigue, fever(s), frequent falls, headache(s), snoring, weakness, sleep problems or change in appetite Eyes Eyes: No blurry vision, change in vision, eye pain or Light sensitivity ENT ENT: No abnormal hearing, ear or mastoid pain, tinnitus, nasal congestion, headache(s), neck pain or sore throat Resp Respiratory: No cough, shortness of breath, snoring or wheezing Cardio Cardiology: No chest pain at rest, chest pain with exertion, excessive sweating,shortness of breath, dyspnea on exertion, lightheadedness, orthopnea or palpitations Gastro GI: No abdominal pain, change in bowel habits, constipation, cramping, diarrhea,nausea/dyspepsia or vomiting Genitourinary Male: No burning urination, painful urination, urinary incontinence or urinary frequency Musc Musculoskeletal: No abnormal gait, joint pain, back pain, limited range of motion, neck pain or numbness Skin Skin: No dry skin, redness, lesions, itchy eyes, rash or wounds Neuro Neurology: No abnormal gait, abnormal hearing, weakness, frequent falls, headache(s), memory loss or numbness Psych Psychiatric: No anxiety, No change in appetite, No depression, No memory loss and No Thoughts of harming yourself/Others Endo Endocrine: No cold intolerance, excessive sweating, fatigue, flushing, heat intolerance, increased thirst/drinking or increased hunger Aller/Imm Allergy/Immunologic: No itchy eyes, seasonal allergy symptoms, hives or wheezing Abram/Lymp Hematologic/Lymphatic: No easy bleeding, easy bruising, enlarged lymph nodes or other Exam Const General: cooperative, comfortable and no acute distress Orientation: alert, awake and oriented x3 HENMT Head: normal to inspection, normocephalic and atraumatic Ears: hearing grossly normal bilaterally Eyes General: appearance normal, both eyes and all related structures Neck Neck: normal visual inspection, full ROM and no lymphadenopathy Neck mass: No Thyroid: thyroid normal Resp Effort & Inspection: normal respiratory effort and able to speak in complete sentences Auscultation: Bilateral: Clear to Auscultation Cardio Rate: regular rate Rhythm: regular rhythm Heart Sounds: S1 normal and S2 normal GI Palpation: soft (Nontender, no palpable organomegaly) Neuro General: patient alert, patient awake, patient oriented x3, moves all extremities and CN's II-XI intact bilaterally Extrem General: no clubbing, cyanosis or edema Psych Appearance: grossly normal Mental Status: mental status grossly normal Mood: congruent mood Affect: normal affect Coding Level of Care Code Off vis,est,level 4 Diagnoses Functional gastric disorder K31.9 Anxiety disorder F41.9 Neck pain M54.2 Assessment and Plan Assessment and Plan (1) Functional gastric disorder: Status: Chronic Plan: No acute concerns at this time. The patient's functional gastric disorder appears controlled with Nortriptyline. Refill sent. Continue current management and follow-up in 3 months. (2) Anxiety disorder: Status: Acute Plan: As above, doing a lot better. Also started a new job which is very likely helping as well. Continue amitriptyline at night. (3) Neck pain: Status: Acute Plan: Persistent. Completed meloxicam and Medrol Dosepak without significant symptom improvement. Yet to get his imaging done, he was advised to. Follow-up with spine Ortho as scheduled. Topical NSAIDs also discussed. This note was generated with BeiZation software. It may contain incorrectwords, spelling, and punctuation that were not noted in checking the note beforesigning. Medications: Refilled nortriptyline 10 mg PO QHS 90 caps 1RF Patient Instructions: - Continue taking Nortriptyline as prescribed every night for bowel control. - Use uvsk-tkw-zftkhcb ibuprofen or pain patches for neck and shoulder pain as needed. - Visit the radiology department to have the cervical x-ray done as ordered; no appointment is needed. - Attend scheduled appointment with export freight specialist for further evaluation. - Adhere to follow-up schedule for reassessment in three months. - Monitor for worsening symptoms or adverse reactions to medications and report if necessary. 07/18/25 1340 <Electronically signed by Cydney arshad MD> Date _ Cydney Mcknight MD Cosigner Signature: Date (if applicable) CC: ~ [facility] Work Phone: 1(737) 357-209007-22-2025 Radiology Diagnostic study note [facility] Services [address] [place], [place] [address] Low Dose CT Lung Screening MR#: [id number] Acct: [id number] Name: PABLO STANLEY Jr. Rep #: [id number] : 1965 M 59 From: Zoe Black MD PCP: Dr. Cydney Mcknight MD Status: R EG CLI Study:Low Dose CT Lung Screening Date of Exam : 05/31/25 Exam# [id number] Ordering Dr: Jennifer Hurst NP [employer]-C EXAM: CT Chest, Lung Cancer Screening Without Intravenous Contrast CLINICAL INDICATION: LUNG CANCER SCREENING TECHNIQUE: Axial computed tomography images of the chest without intravenous contrast using low dose (LDCT) lung cancer screening protocol. This CT exam was performed using one or more of the following dose reduction techniques: automated exposure control, adjustment of the mA and/or kV according to patient size, and/or use ofiterative reconstruction technique. COMPARISON: No relevant prior studies available. FINDINGS: LUNGS AND PLEURAL SPACES: Lung emphysema/COPD with bilateral apical scarring, some of which has a nodular appearance measuring up to 5 mm. Dependent atelectasis, bilaterally. No mass. No significant effusion. No pneumothorax. HEART: Unremarkable. No cardiomegaly. No significant pericardial effusion. No significant coronary artery calcifications. BONES/JOINTS: Unremarkable. No acute fracture. SOFT TISSUES: Unremarkable. VASCULATURE: Unremarkable. No thoracic aortic aneurysm. LYMPH NODES: Unremarkable. No enlarged lymph nodes. CT/Low Dose CT Lung Screening IMPRESSION: 1. Lung emphysema/COPD with bilateral apical scarring, some of which has a nodular appearance measuring up to 5 mm. 2. LUNG-RADS 2: Benign. Continue low-dose CT screening of the chest in 12 months is recommended. Reading [facility] CC: CLARISA Dickson; Dr. Cydney Mcknight MD ~ Clothing Manager: Signed [facility]06-24-2025 Nuclear medicine Diagnostic study note [facility] Imaging Services [address] [place] [id number] Gastric Emptying Study MR#: [id number] Acct: [id number] Name: PABLO STANLEY Jr. Rep #: [id number] : 1965 M 59 From: El Maria MD PCP: Dr. Cydney Mcknight MD Status: R EG CLI Study:Gastric Emptying Study Date of Exam: 05/03/25 Exam# [id number] Ordering Dr: Kaleb Mcknight MD PROCEDURE: GASTRIC EMPTYING STUDY 05/03/2025 REASON FOR EXAM: ABNORMAL BOWEL MOVEMENTS COMPARISON: None. TECHNIQUE: The patient ingested a semi-solid meal of oatmeal. There was no vomiting postprandially. Anterior and posterior planar images of the upper abdomen were a total of 60 minutes. Regions of interest were drawn, and a geometric mean was used to calculate a vxro-osaujunh-tudhv. Medications taken in the past 24 hours that may affect gastric emptying: None RADIOPHARMACEUTICAL: Technetium 99 M sulfur colloid DOSE 1.1mCi intravenous. FINDINGS: During the time of imaging, gastroesophageal reflux was not identified. Linear fit gastric emptying half-time of 68.5 minutes. Gastric emptying at 23.5 minutes of 33%, 47.5 minutes of 37%, and at 59.5 minutes of 40%. NM/Gastric Emptying Study IMPRESSION: Normal semi solid phase gastric emptying. Reading Location: [place] [address] CC: Dr. Cydney Mcknight MD ~ Clothing Manager: Signed [facility]06-17-2025 Telephone encounter Note* Telephone Encounter - Za Torres APRN.CNP - 04/26/2025 12:10 PM EDT Reached out and spoke with patient Verified accuracy of RX [facility] Work Phone: 1(843) 696-763506-17-2025 Miscellaneous Notes* Telephone Encounter - Za Torres APRN.CNP - 04/26/2025 12:10 PM EDT Reached out and spoke with patient Verified accuracy of RX * Telephone Encounter - Jenni Oneal RN - 04/26/2025 11:19 AM EDT Patient notified of results and provider's instructions. Patient verbalizes understanding. Patient is asking if the 4 pills for 1 dose that were prescribed is enough medication? Jenni Oneal RN * Telephone Encounter - Simona Fofana MA - 04/26/2025 7:34 AM EDT Unable to reach patient. Mailbox full/Mailbox not set up/ Number incorrect. Please try again later. Simona Fofana MA * Telephone Encounter - Brant Colon APRN.CNP - 04/26/2025 7:11 AM EDT Please notify positive for trich. Continue with treatment. Recommended to refrain from intercourse for 1 week after treatment. documented in [facility] encounterC[facility]06-[facility]-2025 Telephone encounter Note * Telephone Encounter - Jenni Oneal RN - 04/26/2025 11:19 AM EDT Patient notified of results and provider's instructions. Patient verbalizes understanding. Patient is asking if the 4 pills for 1 dose that were prescribed is enough medication? Jenni Oneal RN [facility]06-17-2025 Telephone encounter Note* Telephone Encounter - Simona Fofana MA - 04/26/2025 7:34 AM EDT Unable to reach patient. Mailbox full/Mailbox not set up/ Number incorrect. Please try again later. Simona Fofana MA [facility]06-17-2025 Telephone encounter Note* Telephone Encounter - Brant Colon APRN.CNP - 04/26/2025 7:11 AM EDT Please notify positive for trich. Continue with treatment. Recommended to refrain from intercourse for 1 week after treatment. [facility] Work Phone: 1(209) 580-138206-16-2025 NoteHNO ID: [id number] Author: PETER FREEDMAN MD Service: ? Author Type: Physician Type: Progress Notes Filed: 04/25/2025 12:45 Note Text: MARGARITA Stanley is a 59 year old male. Patient presents with: STD: Possible trichinosis Patient presents with trichomonas exposure. Treated for trichomonas last year. Same partner has tested positive for trichomonas again and possibly yeast. He has slight discharge and the foreskin is slightly sore when retracted. Otherwise denies fever, chills, nausea, abdominal pain, back pain, blisters, ulcerations, or current bumps. He had a bump on the left side of the scrotum about a month ago which she opened and squeezed; it has since resolved. Review of Systems Objective BP 124/80 Pulse 72 Temp 36.4 ?C (97.5 ?F) Resp 18 Wt 67.3 kg (148 lb 5.9 oz) SpO2 97% Physical Exam Constitutional: General: He is not in acute distress. Cardiovascular: Rate and Rhythm: Normal rate and regular rhythm. Pulmonary: Effort: Pulmonary effort is normal. Breath sounds: Normal breath sounds. Abdominal: General: There is no distension. Palpations: Abdomen is soft. There is no mass. Tenderness: There is no abdominal tenderness. There is no right CVA tenderness or left CVA tenderness. Genitourinary: Penis: Discharge (Clear moisture between the foreskin and glans) present. No paraphimosis, erythema, tenderness, swelling or lesions. Comments: No residual abnormality on the left scrotum Neurological: Mental Status: He is alert. {ASSESSMENT/PLAN: 1. Exposure to trichomonas - ICD9: V01.6, ICD10: Z20.2 Screen for - GONORRHEA/CHLAMYDIA NAAT - TRICHOMONAS VAGINALIS NAAT Treat for likely trichomonas - METRONIDAZOLE 500 MG TABLET Peter Freedman MD Differential Diagnoses - Trichomoniasis is more likely for the following reason(s): Exposure - resolved scrotal pustule or inclusion cyst is more likely for the following reason(s): suggested by HANDP Additional Tests or Interventions The following medication(s) were considered but not ordered: will treat GC/CT with antibiotic if present [facility] [place] History of Present illness Narrative* Peter Freedman MD - 04/25/2025 12:36 PM EDT [employer]ARG[employer] Stanley is a 59 year old male. Patient presents with: STD: Possible trichinosis Patient presents with trichomonas exposure. Treated for trichomonas last year. Same partner has tested positive for trichomonas again and possibly yeast. He has slight discharge and the foreskin is slightly sore when retracted. Otherwise denies fever, chills, nausea, abdominal pain, back pain, blisters, ulcerations, or current bumps. He had a bump on the left side of the scrotum about a month agowhich she opened and squeezed; it has since resolved. Review of Systems Objective BP 124/80 Pulse 72 Temp 36.4 C (97.5 F) Resp 18 Wt 67.3 kg (148 lb 5.9 oz) SpO2 97% Physical Exam Constitutional: General: He is not in acute distress. Cardiovascular: Rate and Rhythm: Normal rate and regular rhythm. Pulmonary: Effort: Pulmonary effort is normal. Breath sounds: Normal breath sounds. Abdominal: General: There is no distension. Palpations: Abdomen is soft. There is no mass. Tenderness: There is no abdominal tenderness. There is no right CVA tenderness or left CVA tenderness. Genitourinary: Penis: Discharge (Clear moisture between the foreskin and glans) present. No paraphimosis, erythema, tenderness, swelling or lesions. Comments: No residual abnormality on the left scrotum Neurological: Mental Status: He is alert. {ASSESSMENT/PLAN: 1. Exposure to trichomonas - ICD9: V01.6, ICD10: Z20.2 Screen for - GONORRHEA/CHLAMYDIA NAAT - TRICHOMONAS VAGINALIS NAAT Treat for likely trichomonas - METRONIDAZOLE 500 MG TABLET Peter Freedman MD Differential Diagnoses - Trichomoniasis is more likely for the following reason(s): Exposure - resolved scrotal pustule or inclusion cyst is more likely for the following reason(s): suggested by H&P Additional Tests or Interventions The following medication(s) were considered but not ordered: will treat GC/CT with antibiotic if present Procedures documented in this encounterC[facility]06-16-2025 NoteHNO ID: [id number] Author: NASH BESS RPh Service: ? Author Type: Pharmacist Type: Progress Notes Filed: 05/01/2025 11:13 Note Text: Telephone Outreach for PrEP Education Called patient and provided education on HIV pre-exposure prophylaxis Patient has not heard of PrEP before Patient is not interested in starting PrEP and would like to get tested for HIV. Will pend lab for our HIV provider team as patient does not have a PCP. Nash Bess, [facility]06-02-2025 Evaluation note* Diagnosis Onset Date Resolution Status Admit Date Abnormal bowel movement acute J une 2024 12:56pm Elevated blood pressure read ing without diagnosis of hypertension acute April 11, 2025 12:56pm Encounter to establish care acute April 11, 2025 12:56pm Preventative health care acute April 11, 2025 12:56pm [facility] Work Phone: 1(185) 189-144806-02-2025 Evaluation note* Diagnosis Onset Date Resolution Status Admit Date Abnormal bowel movement acute J une 2024 12:56pm Elevated blood pressure read ing without diagnosis of hypertension acute April 11, 2025 1 2:56pm Encounter to establish care acute April 11, 2025 12:56pm Preventative health care acute April 11, 2025 12:56pm Encounter for screening for malignant neoplasm of lung acute May 31, 2025 12:40pm Tobacco use disorder, continuous acu te May 31, 2025 12:40pm [facility] Work Phone: 1(674) 899-597506-02-2025 Evaluation note* Diagnosis Onset Date Resolution Status Admit Date Abnormal bowel movement acute J une 2024 12:56pm Elevated blood pressure read ing without diagnosis of hypertension acute April 11, 2025 1 2:56pm Encounter to establish care acute April 11, 2025 12:56pm Preventative health care acute April 11, 2025 12:56pm Encounter for screening for malignant neoplasm of lung acute May 31, 2025 12:40pm Tobacco use disorder, continuous acute May 31, 2025 12:40pm Abnormal bowel movement acute A ug2024 1:01pm Anxiety disorder acute June 152024 1:01pm Functional gastric disorder acute June 15, 2025 1:01pm Neck muscle spasm acute June 24, 2025 7:29am Neck pain acute June 24, 2 025 7:29am [facility] Work Phone: 1([phone]) 578-768106-02-2025 Evaluation note* Diagnosis Onset Date Resolution Status Admit Date Abnormal bowel movement acute J une 2024 12:56pm Elevated blood pressure reading without diagnosis of hypertension acute April 11, 2025 1 2:56pm Encounter to establish care acute April 11, 2025 12:56pm Preventative health care acute April 11, 2025 12:56pm Encounter for screening for malignant neoplasm of lung acute May 31, 2025 12:40pm Tobacco use disorder, continuous acute May 31, 2025 12:40pm Abnormal bowel movement acute A ugust 2024 1:01pm Anxiety disorder acute June 152024 1:01pm Functional gastric disorder chronic June 15, 2025 1:01pm Neck muscle spasm acute June 24, 2025 7:29am Neck pain acute June 24, 7:29am Anxiety disorder acute Septembe r 2024 1:03pm Neck pain acute July 18, 2025 1:03pm Functional gastric disorder chronic July 18, 2025 1:03pm [facility] Work Phone: 1([phone]) 233-817604-17-2024 Miscellaneous Notes* Telephone Encounter - Desiree Su RN - 02/25/2024 10:53 AM EDT Patient calls and notified of results and providers instructions. Patient verbalizes understanding. Desiree Su RN * Telephone Encounter - Ashley Cm LPN - 02/24/2024 3:02 PM EDT Left message for patient to return call. Ashley Cm LPN * Telephone Encounter - Ishaan Rodriguez APRN.CNP - 02/24/2024 2:26 PM EDT Please inform patient ultrasound did not reveal any masses. 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 Most the time these are harmless and no treatment is needed. Follow-up with as discussed. Ishaan Rodriguez APRN.LOIDA documented in this encounterCleveland Clinic [facility]04-17-2024 Miscellaneous Notes* Telephone Encounter - Desiree Su RN - 02/25/2024 10:52 AM EDT Patient calls and notified of results and providers instructions. Patient verbalizes understanding. Desiree Su RN * Telephone Encounter - Simona Fofana MA - 02/24/2024 7:32 AM EDT Left message for patient to return call. Simona Fofana MA * Telephone Encounter - Nereyda Mckeon PA - 02/24/2024 7:16 AM EDT Please contact patient and let him know he tested positive for trichomonas. This is an STD. I sent metronidazole into the pharmacy. Please take this twice daily as prescribed. Do not drink alcohol while taking this medication. No sexual intercourse for 7 days after finishing antibiotic. Notify all partners of positive trichomonas result. He was negative for chlamydia and gonorrhea documented in this encounterCleveland Clinic Foundation04-16-2024 History of Present illness Narrative* Za Doe RDMS - 02/24/2024 1:45 PM EDT Radiology Service Progress Note PATIENT NAME: Pablo Stanley DATE OF SERVICE: February 24, 2024 TIME: 3:17 PM PATIENT IDENTITY VERIFICATION COMPLETED USING TWO (2) IDENTIFIERS: Name and Date of confirmedby patient verbally. FALL SCREENING: Has the patient had 2 falls in the last year or 1 fall with injury or currently using an Ambulatory Assistive Device (Walker, Cane, Wheelchair, Crutches, etc.)? No PATIENT GENDER DATA: Male PATIENT RELEVANT IMPLANT DATA REVIEWED: Not Applicable PATIENT PRESENTS WITH AN IMPLANTABLE OR ATTACHED SNOW TECHNICIAN: No RADIOLOGY DEPARTMENT: Ultrasound PERIPHERAL IV DATA: Not applicable SIGNED BY: Za Doe RDMS RVT February 24, 2024 3:17 PM documented in this encounterCleveland Clinic Foundation04-15-2024 History of Present illness Narrative* Ishaan Rodriguez APRN.MEDICAL EDUCATOR - 02/23/2024 11:50 AM EDT Images from the original note were not included. Subjective HPI Nontoxic-appearing male presents urgent care chief complaint STD exposure. Patient states found outthat his partner tested positive for trichomonas. He has been sexually active with her. Does not use protection. States overall feels well. Additionally has noticed the lump in his left testicle. This has been present for 2 to 3 months. It is not painful. Denies any scrotal pain testicular swellingpenile drainage or rashes. Presents today for evaluation. [...] Patient will follow up with primary care provideras needed. Patient was instructed to immediately proceed to emergency room for any new, worsening, or symptoms lasting longer than anticipated. The patient's clinical presentation is otherwise unremarkable at this time. Based on exam and clinical finding, the patient is stable for discharge. Plan of care was discussed with patient. Patient verbalizes understanding and agrees to plan of care. Thisnote was generated using Chicfy software. It may contain errors in wording, punctuation, or spelling. Ishaan Rodriguez APRN.MEDICAL EDUCATOR documented in this encounterCleveland Clinic Foundation06-21-2023 Nurse Note* Blanka Hanson LPN - 04/30/2023 4:09 PM EDT Ambulatory Ear Lavage Pre-treatment: Carbamide Peroxide (i.e. Debrox) Treatment: Both ears Equipment and Irrigation solution and Volume used: Single use syringe with single use irrigation tip Water Return flow appearance: Brown Yellow Cloudy Debris Patient tolerated procedure: yes Tympanic membrane assessment: Tympanic membrane assessed by LIP pre and post procedure documented in [facility] encounterC[facility] Foundation[facility]23 History of Present illness Narrative* Brant Colon APRN.LOIDA - 04/30/2023 3:53 PM EDT Subjective HPI HPI Pablo Stanley is a 57 year old male [...] resp. rate 18, weight 67.4 kg (148 lb9.6 oz), SpO2 98 %. Physical Exam Constitutional: [...] hard crumen. Nose: Nose normal. Mouth/Throat: Lips: [place]. Mouth: Mucous membranes are moist. Pulmonary: Effort: [...] not using qtips. - AMBULATORY EAR LAVAGE/IRRIGATION Brant Colon APRN.LOIDA documented [facility]* Diagnosis Bilateral impacted cerumen- Primary Impacted cerumen [facility] Diagnosis Screening for STD (sexually transmitted disease)- Primary Screening examination for venereal disease Testicular mass Other specified disorder of male genital organs documented [facility]* Diagnosis Testicular mass Other specified disorder of male genital organs documented in this encounter [facility] noteNo assessment information availableBlLos Angeles [facility] Work Phone: Evaluation note* Diagnosis Exposure to trichomonas- Primary Contact with or exposure to venereal diseases [facility]* G[facility] Location: None Selected [facility] Work Phone: Reason for referral (narrative)* Diagnostic Procedure Only (Urgent) - Authorized Specialty Diagnoses / Procedures Referred By Contac t Referred To Contact US IMAGING Diagnoses Testicular mass Procedures US SCROTUM AND CONTENTS US SCROTUM & CONTENTS Ishaan Rodriguez APRN.MEDICAL EDUCATOR [address] [place] [address] [place] [address] Referral ID Status Reason Start Date Expiration Date Visits Requested Visits Authorized [id number] Authorized Auto-Generat ed Referral 02/23/2024 03/24/2025 1 1 * Consult, Test, Treat (Routine) - Authorized Specialty Diagnoses / Procedures Referred By Jerad akers Referred To Contact Urology Diagnoses Testicular mass Procedures CONSULT TO UROLOGY OFFICE/OUTPATIENT [facility] 60 MINUTES Ishaan Rodriguez APRN.MEDICAL EDUCATOR [address] [place] [address] Referral ID Status Reason Start Date Expiration Date Visits Requested Visits Authorized [id number] Authorized PCP Requested Referral 02/23/2024 02/22/2025 1 1 [facility] Foundation[facility] referral (narrative)* Diagnostic Procedure Only (Urgent) - Closed Specialty Diagnoses / Procedures Referred By Jerad akers Referred To Contact US IMAGING Diagnoses Testicular mass Procedures US SCROTUM AND CONTENTS US SCROTUM & CONTENTS Ishaan Rodriguez APRN.MEDICAL EDUCATOR [address] [place] [address] [place] [address] Referral ID Status Reason Start Date Expiration Date V isits Requested Visits Authorized [id number] Closed Auto-Generate d Referral 02/23/2024 03/24/2025 1 1 [facility] Chief Complaint and Reason for Visit Chief Complaint Admit Date EST NEW PT - [facility] SENT April 11, 2025 12 :56pm Reason for Visit Admit Date Abnormal bowel movement April 11, 2025 1 2:56pm Elevated blood pressure read ing without diagnosis of hypertension April 11, 2025 12:56pm Encounter to establish care April 11 12:56pm Preventative health care April 11, 2025 12:56pm Chief Complaint Admit Date EST NEW PT - [facility] SENT April 11, 2025 12 :56pm ABNORMAL BOWEL MOVEMENTS May 03, 2025 10:27am Chief Complaint Admit Date EST NEW PT - [facility] SENT April 11, 2025 12 :56pm ABNORMAL BOWEL MOVEMENTS May 03, 2025 10:27am Lung cancer screening May 31, 2025 12 :40pm Reason for Visit Admit Date Abnormal bowel movement April 11, 2025 1 2:56pm Elevated blood pressure read ing without diagnosis of hypertension April 11, 2025 12:56pm Encounter to establish care April 11 12:56pm Preventative health care April 11, 2025 12:56pm Encounter for screening for malignant ne oplasm of lung May 31, 2025 12:40pm Tobacco use disorder, continuous May [id number] 12:40pm Chief Complaint Admit Date EST NEW PT - [facility] SENT April 11, 2025 12 :56pm ABNORMAL BOWEL MOVEMENTS May 03, 2025 10:27am Lung cancer screening May 31, 2025 12 :40pm SCREENING May 31, 2025 1:23 pm Chief Complaint Admit Date EST NEW PT - [facility] SENT April 11, 2025 12 :56pm ABNORMAL BOWEL MOVEMENTS May 03, 2025 10:27am Lung cancer screening May 31, 2025 12 :40pm SCREENING May 31, 2025 1:23 pm BATHROOM ISSUES June 15, 2025 1:0 1pm Chief Complaint Admit Date EST NEW PT - [facility] SENT April 11, 2025 12 :56pm ABNORMAL BOWEL MOVEMENTS May 03, 2025 10:27am Lung cancer screening May 31, 2025 12 :40pm SCREENING May 31, 2025 1:23 pm BATHROOM ISSUES June 15, 2025 1:0 1pm 'PINCHED NERVE' IN SHOULDERS June 7:29am Reason for Visit Admit Date Abnormal bowel movement April 11, 2025 1 2:56pm Elevated blood pressure read ing without diagnosis of hypertension April 11, 2025 12:56pm Encounter to establish care April 11 12:56pm Preventative health care April 11, 2025 12:56pm Encounter for screening for malignant ne oplasm of lung May 31, 2025 12:40pm Tobacco use disorder, continuous May [id number] 12:40pm Abnormal bowel movement June 15, 2025 1:01pm Anxiety disorder June 15, 2025 1:0 1pm Functional gastric disorder June 15, 2025 1:01pm Neck muscle spasm June 24, 2025 7: 29am Neck pain June 24, 2025 7: 29am Chief Complaint Admit Date EST NEW PT - [facility] SENT April 11, 2025 12 :56pm ABNORMAL BOWEL MOVEMENTS May 03, 2025 10:27am Lung cancer screening May 31, 2025 12 :40pm SCREENING May 31, 2025 1:23 pm BATHROOM ISSUES June 15, 2025 1:0 1pm 'PINCHED NERVE' IN SHOULDERS June 7:29am 3 M FU July 18, 2025 1:03pm Reason for Visit Admit Date Abnormal bowel movement April 11, 2025 1 2:56pm Elevated blood pressure read ing without diagnosis of hypertension April 11, 2025 12:56pm Encounter to establish care April 11 12:56pm Preventative health care April 11, 2025 12:56pm Encounter for screening for malignant ne oplasm of lung May 31, 2025 12:40pm Tobacco use disorder, continuous May [id number] 12:40pm Abnormal bowel movement June 15, 2025 1:01pm Anxiety disorder June 15, 2025 1:0 1pm Functional gastric disorder June 15, 2025 1:01pm Neck muscle spasm June 24, 2025 7: 29am Neck pain June 24, 2025 7: 29am Anxiety disorder July 18, 2025 1:03pm Neck pain July 18, 2025 1:03pm Functional gastric disorder July 1:03pm Summary Purpose Family History No Family History Records FoundNo Family History Records Found Advance Directives No Advanced Directives Records FoundNo Advanced Directives Records Found Additional Source Comments Source Comments (unrecognize d section and content) In the event this informatio n is protected by the Federal Confidentiality of Alcohol and Drug Abuse Patient Records regulations: The Federal rules restrict any use of the information to criminally investigate or prosecute any alcohol or drug abuse patient.[facility] FoundationIn the event this information is protected by the Federal Confidentiality of Alcohol and Drug Abuse Patient Records regulations: The Federal rules restrict any use of the information to criminally investigate or prosecute any alcohol or drug abuse patient.[facility] FoundationIn the event this information is protected by the Federal Confidentiality of Alcohol and Drug Abuse Patient Records regulations: The Federal rules restrict any use of the information to criminally investigate or prosecute any alcohol or drug abuse patient.[facility] FoundationIn the event this information is protected by the Federal Confidentiality of Alcohol and Drug Abuse Patient Records regulations: The Federal rules restrict any use of the information to criminally investigate or prosecute any alcohol or drug abuse patient.[facility] FoundationIn the event this information is protected by the Federal Confidentiality of Alcohol and Drug Abuse Patient Records regulations: The Federal rules restrict any use of the information to criminally investigate or prosecute any alcohol or drug abuse patient.[facility] FoundationIn the event this information is protected by the Federal Confidentiality of Alcohol and Drug Abuse Patient Records regulations: The Federal rules restrict any use of the information to criminally investigate or prosecute any alcohol or drug abuse patient.[facility] FoundationIn the event this information is protected by the Federal Confidentiality of Alcohol and Drug Abuse Patient Records regulations: The Federal rules restrict any use of the information to criminally investigate or prosecute any alcohol or drug abuse patient.[facility] Reason for Visit (unrecogniz ed section and content) Reason Comments Ear Problem Bilateral ears clogg ed x1 week Reason Comments STD trich exposure Reason Comments Radiology US Specialty Diagnoses / Procedures Referred By Contac t Referred To Contact US IMAGING Diagnoses Testicular mass Procedures US SCROTUM AND CONTENTS US SCROTUM & CONTENTS Ishaan Rodriguez APRN.MEDICAL EDUCATOR [address] [place] [address] [place] [address] Referral ID Status Reason Start Date Expiration Date V isits Requested Visits Authorized [id number] Closed Auto-Generate d Referral 02/23/2024 03/24/2025 1 1 Reason Comments Results Reason Comments STD Possible trichinosis Reason Onset Date Comments Results 04/26/2025 Care Teams (unrecognized sec tion and content) [...] April 11, 2025 End: April 11, 2025 Team Status: Active Member Role Status Dates Dr. Cydney Mcknight MD Primary Care Provider Active Team Status: Inactive Member Role Status Dates Dr. Cydney Mcknight MD Primary Care Provider Active Start: April 12, 2025 End: April 12, 2025 Dr. Cydney Mcknight MD Attending Provider Active Start: April 12, 2025 End: April 12, 2025 Dr. Cydney Mcknight MD Referring Provider Active Start: April 12, 2025 End: April 12, 2025 Team Status: Active Member Role/Relationship Status Dates Dr. Cydney Mcknight MD Primary Care Provider Active Team Status: Inactive Member Role/Relationship Status Dates No Primary Care Physician Primary Care Provider Active Start: April 11, 2025 End: April 11, 2025 No Primary Care Physician Referring Provider Active Start: April 11, 2025 End: April 11, 2025 Dr. Cydney Mcknight MD Attending Provider Active Start: April 11, 2025 End: April 11, 2025 Team Status: Inactive Member Role/Relationship Status Dates Dr. Cydney Mcknight MD Primary Care Provider Active Start: April 12, 2025 End: April 12, 2025 Dr. Cydney Mcknight MD Attending Provider Active Start: April 12, 2025 End: April 12, 2025 Dr. Cydney Mcknight MD Referring Provider Active Start: April 12, 2025 End: April 12, 2025 Team Status: Inactive Member Role/Relationship Status Dates Dr. Cydney Mcknight MD Primary Care Provider Active Start: May 03, 2025 End: May 03, 2025 Dr. Cydney Mcknight MD Attending Provider Active Start: May 03, 2025 End: May 03, 2025 Dr. Cydney Mcknight MD Referring Provider Active Start: May 03, 2025 End: May 03, 2025 Team Status: Inactive Member Role/Relationship Status Dates Dr. Cydney Mcknight MD Primary Care Provider Active Start: May 31, 2025 End: May 31, 2025 Dr. Cydney Mcknight MD Referring Provider Active Start: May 31, 2025 End: May 31, 2025 Jennifer Dickson CLAY MAKER, CLAY MAKER-C Attending Provider Active Start: May 31, 2025 End: May 31, 2025 Team Status: Inactive Member Role/Relationship Status Dates Dr. Cydney Mcknight MD Primary Care Provider Active Start: May 31, 2025 End: May 31, 2025 Jennifer Dickson CLAY MAKER, CLAY MAKER-C Attending Provider Active Start: May 31, 2025 End: May 31, 2025 Jennifer Dickson CLAY MAKER, CLAY MAKER-C Referring Provider Active Start: May 31, 2025 End: May 31, 2025 Team Status: Inactive Member Role/Relationship Status Dates Dr. Cydney Mcknight MD Primary Care Provider Active Start: June 15, 2025 End: June 15, 2025 Dr. Cydney Mcknight MD Attending Provider Active Start: June 15, 2025 End: June 15, 2025 Dr. Cydney Mcknight MD Referring Provider Active Start: June 15, 2025 End: June 15, 2025 Team Status: Inactive Member Role/Relationship Status Dates Dr. Cydney Mcknight MD Primary Care Provider Active Start: June 24, 2025 End: June 24, 2025 Dr. Cydney Mcknight MD Referring Provider Active Start: June 24, 2025 End: June 24, 2025 HUNTER Neumann Attending Provider Active St art: June 24, 2025 End: June 24, 2025 Team Status: Inactive Member Role/Relationship Status Dates Dr. Cydney Mcknight MD Primary Care Provider Active Start: May 31, 2025 End: May 31, 2025 Jennifer Dickson CLAY MAKER, CLAY MAKER-C Attending Provider Active Start: May 31, 2025 End: May 31, 2025 Jennifercr GandhiRandolph CLAY MAKER, CLAY MAKER-C Referring Provider Active Start: May 31, 2025 End: May 31, 2025 Team Status: Inactive Member Role/Relationship Status Dates No Primary Care Physician Referring Provider Active Start: July 18, 2025 End: July 18, 2025 Dr. Cydney Mcknight MD Primary Care Provider Active Start: July 18, 2025 End: July 18, 2025 Dr. Cydney Mcknight MD Attending Provider Active Start: July 18, 2025 End: July 18, 2025 Goals (unrecognized section and content) Goals may be documented in a n alternate sectionGoals may be documented in an alternate sectionGoals may be documented in an alternate sectionGoals may be documented in an alternate sectionGoals may be documented in an alternate sectionGoals may be documented in an alternate sectionGoals may be documented in an alternate sectionGoals may be documented in an alternate section (unrecognized sect ion and content) No Status Records FoundNo Status Records Found INFORMATION SOURCE (unrecogn ized section and content) DATE CREATED AUTHOR 05/02/2025 [facility] DATE CREATED AUTHOR AUTHOR'S ORGANIZ ATION 07/24/2025 [facility] FOR RECORDS PERTAINING TO PATIENTS WHO ARE [...] BE BASED ON THE PRIMARY CLINICAL RECORDS. [employer] provides no warranty or guarantee of the accuracy or completeness of information in this document.
== END | disposition home or self-care (01) ==
LOC: RAD 15:01
PROVIDERS: PCP Internal Medicine; Referring Provider Student in an Organized Health Care Education/Training Program; Visit Provider Student in an Organized Health Care Education/Training Program
DX: M54.2 Cervicalgia (principal)
CPT/HCPCS: 72050

== ENCOUNTER → 2025-09-28 | Outpatient (CLI) | payer MEDICAID, SELFPAY ==
--- NOTE | 2025-09-28 14:57 | NEURO ---
NCS and/or EMG Patient Report Ordering Doctor: Anish Merrill DATE OF SERVICE: 09/21/25 Pablo presents with complaints of neck pain radiating down to both hands. Electrodiagnostic findings: Median motor nerve demonstrates normal distal latency, amplitude and conduction velocity bilaterally. Ulnar motor response within normal limits bilaterally. Normal median and ulnar F?waves. Sensory responses are within normal limits. Normal median palmar response bilaterally. Needle EMG testing was performed in the upper limbs. All muscles tested showed no evidence of denervation with normal motor unit action potentials. Electrodiagnostic impression: This is a normal electrodiagnostic study of the upper limbs. There is no electrodiagnostic evidence for peripheral neuropathy, including carpal tunnel syndrome. There is no electrodiagnostic evidence for cervical radiculopathy Multi Select Codes Neurology Neurology Interp Codes: 11836-47 Musc test done w/n test comp (interp) (2) and 18905-99 Nrv cndj test 13/> studies (interp)
== END | disposition home or self-care (01) ==
LOC: PSN 13:51
PROVIDERS: PCP Internal Medicine; Referring Provider Physician Assistant; Visit Provider Physician Assistant
DX: M54.12 Radiculopathy, cervical region (principal)
CPT/HCPCS: 95886; 95913